=== PATIENT | male | born 1945 | race Caucasian/White ===

== ENCOUNTER → 2018-10-13 08:49 | Outpatient (POV) | payer MEDICARE, OTHER, SELFPAY | PROVIDERS: Visit Provider Specialist | DX: R25.1 Tremor, unspecified (principal); R29.898 Other symptoms and signs involving the musculoskeletal system; R20.0 Anesthesia of skin; M79.603 Pain in arm, unspecified; E11.8 Type 2 diabetes mellitus with unspecified complications; Z79.84 Long term (current) use of oral hypoglycemic drugs | CPT/HCPCS: 95886; 95908 ==

== ENCOUNTER → 2018-10-20 11:33 | Outpatient (CLI) | payer MEDICARE, OTHER, SELFPAY ==
[2018-10-20 12:04] LABS: Basophils # 0.1 K/mm3 (0-0.2); Basophils % 1.8 % (0.1-2.0); Eosinophils # 0.6 K/mm3 (0.0-0.4); Eosinophils % 8.2 % (0.1-12.0); Hematocrit 37.6 % (42.0-52.0); Lymphocytes % 44.3 % (10-50); Mean Corpuscular Hemoglobin 28.7 pg (27.0-31.2); Mean Corpuscular Volume 89.6 fl (80-94); Mean Platelet Volume 7.1 fl (7.4-10.4); Monocytes # 0.5 K/mm3 (0.1-1.0); Monocytes % 7.4 % (1.7-9.3); Neutrophils # 2.6 K/mm3 (1.8-7.8); Neutrophils % 38.3 % (37.0-80.0); Platelet Count 168 K/mm3 (142-424); Red Cell Distribution Width 13.9 % (11.5-17.5); White Blood Count 6.8 K/mm3 (4.8-10.8)
[2018-10-20 12:57] LABS: Hemoglobin A1C 6.4 % (0.0-7.0)
[2018-10-20 13:33] LABS: Alanine Aminotransferase 29 U/L (12-78); Albumin Level 3.4 gm/dL (3.4-5.0); Albumin/Globulin Ratio 1.1 (1.1-1.8); Alkaline Phosphatase 141 U/L (46-116); Anion Gap 9.6 mEq/L (5-15); Aspartate Amino Transferase 38 U/L (15-37); Bilirubin,Total 0.6 mg/dL (0.2-1.0); Blood Urea Nitrogen 11 mg/dL (7-18); Calcium 9.5 mg/dL (8.5-10.1); Carbon Dioxide 30 mmol/L (21.0-32.0); Chloride 104 mmol/L (98-107); Creatinine,Serum 0.73 mg/dL (0.70-1.30); Estimated Glomerular Filt Rate 106 ml/min (>60); GFR (African American) 128 ML/MIN (>60); Globulin 3.1 gm/dl (1.3-3.2); Glucose 89 mg/dL (74-106); Potassium 3.6 mmoL/L (3.5-5.1); Sodium 140 mmol/L (136-145); Thyroid Stimulating Hormone 1.78 uIU/ml (0.358-3.740); Total Protein,Serum 6.5 gm/dL (6.4-8.2)
[2018-10-21 12:58] LABS: Folate 10.5 ng/mL (>3.0)
[2018-10-21 13:00] LABS: Vitamin B12 579 pg/mL (232-1245)
== END ==
PROVIDERS: Visit Provider Specialist
DX: E11.8 Type 2 diabetes mellitus with unspecified complications (principal); R20.0 Anesthesia of skin; R25.1 Tremor, unspecified; R29.898 Other symptoms and signs involving the musculoskeletal system; Z79.84 Long term (current) use of oral hypoglycemic drugs; M79.601 Pain in right arm
CPT/HCPCS: 36415; 80053; 82607; 82746; 83036; 84443; 85025

== ENCOUNTER → 2021-04-03 10:56 | Outpatient (CLI) | payer MEDICARE, OTHER, SELFPAY ==
[2021-04-03 11:42] LABS: Basophils # 0.1 K/mm3 (0-0.2); Basophils % 1.1 % (0.1-2.0); Eosinophils # 0.6 K/mm3 (0.0-0.4); Hematocrit 40.9 % (42.0-52.0); Hemoglobin 13.5 g/dL (14.1-18.0); Hemoglobin A1C 5.8 % (4.0-6.0); Lymphocytes # 2.2 K/mm3 (0.7-4.5); Lymphocytes % 31.3 % (10-50); Mean Corpuscular HGB Conc 33.1 g/dL (31.8-35.4); Mean Corpuscular Hemoglobin 32.1 pg (27.0-31.2); Mean Corpuscular Volume 97.1 fl (80-94); Mean Platelet Volume 8.3 fl (7.4-10.4); Monocytes # 0.5 K/mm3 (0.1-1.0); Monocytes % 6.4 % (1.7-9.3); Neutrophils # 3.7 K/mm3 (1.8-7.8); Neutrophils % 53.3 % (37.0-80.0); Platelet Count 172 K/mm3 (142-424); Red Blood Count 4.22 M/mm3 (4.60-6.20); Red Cell Distribution Width 14.5 % (11.5-17.5)
[2021-04-03 12:22] LABS: Alanine Aminotransferase 19 U/L (12-78); Albumin Level 3.8 g/dl (3.5-5.0); Albumin/Globulin Ratio 1.4 (1.1-1.8); Alkaline Phosphatase 149 U/L (38-126); Aspartate Amino Transferase 44 U/L (17-59); Bilirubin,Total 0.8 mg/dl (0.2-1.3); Blood Urea Nitrogen 14 mg/dl (9-20); Calcium 9.8 mg/dl (8.4-10.2); Carbon Dioxide 28 mmol/L (22.0-30.0); Chloride 102 mmol/L (98-107); Estimated Glomerular Filt Rate 132 ml/min (>60); GFR (African American) 159 ML/MIN (>60); Globulin 2.8 g/dL (1.3-3.2); Glucose 99 mg/dl (74-100); Sodium 138 mmol/L (136-145); Total Protein,Serum 6.6 g/dl (6.3-8.2)
[2021-04-03 13:29] LABS: Vitamin B12 622 pg/mL (239-931)
== END ==
PROVIDERS: Visit Provider Nurse Practitioner Family
DX: R25.1 Tremor, unspecified (principal); R20.2 Paresthesia of skin; E11.9 Type 2 diabetes mellitus without complications; Z79.84 Long term (current) use of oral hypoglycemic drugs
CPT/HCPCS: 36415; 80053; 82607; 82746; 83036; 84443; 85025

== ENCOUNTER → 2021-05-01 13:57 | Outpatient (CLI) | payer MEDICARE, OTHER, SELFPAY | PROVIDERS: PCP Family Medicine; Visit Provider Nurse Practitioner Family | DX: G47.00 Insomnia, unspecified (principal); R40.0 Somnolence | CPT/HCPCS: 94762 ==

== ENCOUNTER → 2021-05-15 13:57 | Outpatient (CLI) | payer MEDICARE, OTHER, SELFPAY | PROVIDERS: PCP Family Medicine; Visit Provider Nurse Practitioner Family | DX: G47.34 Idiopathic sleep related nonobstructive alveolar hypoventilation (principal); G47.30 Sleep apnea, unspecified | CPT/HCPCS: G0399 ==

== ENCOUNTER → 2021-07-24 20:05 | Outpatient (CLI) | payer MEDICARE, OTHER, SELFPAY | PROVIDERS: PCP Family Medicine; Visit Provider Nurse Practitioner Family | DX: G47.33 Obstructive sleep apnea (adult) (pediatric) (principal) | CPT/HCPCS: 95810 ==

== ENCOUNTER 2022-07-06 10:27 | Inpatient (IN) | payer MEDICARE, OTHER, SELFPAY ==
[2022-07-06] VITALS (46 sets, daily range): BP systolic 67–204; BP diastolic 41–146; PULSE 74–104; RESP 15–33; TEMP 29.7–37.5; O2SAT 93–100; BMI 33.2
--- NOTE | 2022-07-06 10:34 | CT_ITS ---
FINAL REPORT TECHNIQUE: Thin section axial images were obtained from skull base to vertex without contrast. Coronal reconstruction images were obtained from the axial data. Exam was performed using dose reduction technique. CLINICAL HISTORY: AMS FINDINGS: There is no mass effect or midline shift. There is no hydrocephalus. There is no intracranial hemorrhage. The posterior fossa is without acute abnormality. The basilar cisterns are preserved. The soft tissues are without acute abnormality. No acute osseous abnormality is identified. IMPRESSION: No acute intracranial abnormality. Reviewed, Interpreted and Dictated by Shelley Low MD Transcribed by Elinor Edwards Authenticated and [facility]
--- NOTE | 2022-07-06 10:34 | PC.NURSE ---
Urine obtained by catheterization
--- NOTE | 2022-07-06 10:34 | HMH.EDGENADL ---
Discharge Plan Disposition Patient Disposition: Admitted As Inpatient Prescriptions Prescriptions: No Action aspirin [Adult Aspirin Regimen] 81 mg tablet,delayed release (DR/EC) 81 mg PO DAILY lisinopril-hydrochlorothiazide 20-12.5 mg tablet 1 tab PO DAILY Qty: 90 furosemide 40 mg tablet 40 mg PO DAILY Qty: 30 simvastatin 20 mg tablet 20 mg PO QHS metformin 500 mg tablet 500 mg PO BID cholecalciferol (vitamin D3) 1,000 unit capsule 1,000 unit PO BID sertraline 100 mg tablet 100 mg PO DAILY primidone 50 mg tablet 100 mg PO HS 90 Days Qty: 180 0RF Rx Instructions: take between 8-9pm, will cause drowsiness Clinical Impressions Clinical Impression: Hypothermia, Multi-organ system dysfunction, Rhabdomyolysis Instructions Patient Instructions: DI for Altered Mental Status Discharge ED Provider: Marlene Gamez General Adult HPI General Chief complaint: Altered Mental Status Stated complaint: fall, ams Time Seen by Provider: 07/06/22 10:34 History of Present Illness HPI narrative: 77-year-old male brought in by EMS after being found down outside in the cold rain. History is difficult to obtain secondary to patient's clinical status unknown amount of time the patient was outside. Patient was hypothermic in route by tactile touch but no objective temperature was taken. Patient is unable to provide further history and family is not available at the time of arrival. Related Data Home Medications Medication Instructions Recorded Confirmed cholecalciferol (vitamin D3) 25 1,000 unit PO BID Supplement 09/15/18 07/06/22 mcg (1,000 unit) capsule furosemide 40 mg tablet 40 mg PO DAILY Fluid #30 tabs 09/15/18 07/06/22 lisinopril 20 1 tab PO DAILY bp #90 tabs 09/15/18 07/06/22 mg-hydrochlorothiazide 12.5 mg tablet metformin 500 mg tablet 500 mg PO BID Diabetes 09/15/18 07/06/22 simvastatin 20 mg tablet 20 mg PO QHS Cholesterol 09/15/18 07/06/22 aspirin 81 mg tablet,delayed 81 mg PO DAILY heart health 04/03/21 07/06/22 release (Adult Aspirin Regimen) sertraline 100 mg tablet 100 mg PO DAILY mood 04/03/21 07/06/22 Previous Rx's Medication Instructions Recorded primidone 50 mg tablet 100 mg PO HS tremor 90 days #180 04/12/22 tabs Allergies Allergy/AdvReac Type Severity Reaction Status Date / Time Penicillins Allergy Verified 07/06/22 10:48 TAPE Allergy Unknown BLISTERS Uncoded 12/12/21 13:07 SKIN, CLEAR PLASTIC TAPE PFSH [facility] Disclaimer: The information contained in this section may have been updated after the patient was seen, as this information can be updated by other users. Social History Smoking Status: Unknown if ever smoked alcohol intake: never substance use type: denies use current occupational status: retired Travel in the last 8 weeks: None household members: significant other housing: house ROS Obtained: Yes All systems reviewed & no additional complaints except as documented Physical Exam General General appearance: lethargic and other (Appears ill and very cold to the touch skin is wet clothing is wet) Head Head exam: atraumatic and normocephalic Eye Eye exam: Present normal appearance, PERRL and EOMI ENT ENT exam: Present normal exam Neck Neck exam: Absent tenderness Chest Chest inspection: Present normal inspection and symmetric chest wall rise Respiratory Respiratory exam: Present normal lung sounds bilaterally; Absent respiratory distress, wheezes or stridor Cardiovascular Cardiovascular exam: Present regular rate, normal rhythm, bradycardia and tachycardia Abdominal Exam Abdominal exam: Present soft; Absent distention, tenderness or guarding Neurological Exam Neurological exam: Present alert and oriented X3 Skin Skin exam: Present other (Ecchymotic and erythematous skin breakdown changes throughout bilateral upper extremities and locations of pressure including bi
--- NOTE | 2022-07-06 10:35 | XR_ITS ---
FINAL REPORT CLINICAL HISTORY: dyspnea FINDINGS: A single PA view of the chest was obtained. There is no prior exam for comparison. The heart is borderline in size. The mediastinal silhouette is normal. There are low lung volumes with bibasilar opacities which could be atelectasis or pneumonia, effusions are not excluded. There is no pneumothorax. No acute osseous abnormality is identified. IMPRESSION: Bibasilar opacities, could be atelectasis or pneumonia, effusions are not excluded. Reviewed, Interpreted and Dictated by Shelley Low MD Transcribed by Elinor Edwards Authenticated and [facility]
--- NOTE | 2022-07-06 10:40 | PC.NURSE ---
PT TO CT
[2022-07-06 10:43] LABS: VBG Base Excess -7.1 mmol/L (-2.4-2.3); VBG HCO3 21.5 mmol/L (23-30); VBG PCO2 60.3 mmol/L (35-51); VBG PO2 40.3 mmol/L (28-40); VBG Total CO2 23.3 mmol/L (23-27)
[2022-07-06 10:45] LABS: VBG PH 7.17 mmol/L (7.31-7.41)
--- NOTE | 2022-07-06 10:45 | PC.NURSE ---
CARINA SOTELO notified of critical vbg results
--- NOTE | 2022-07-06 10:46 | PC.NURSE ---
pt to CT via stretcher with nursing staff monitoring pt
[2022-07-06 10:54] LABS: Chloride 104 mmol/L (98-107); Sodium 146 mmol/L (136-145)
--- NOTE | 2022-07-06 10:54 | PC.NURSE ---
pt return from CT
--- NOTE | 2022-07-06 10:54 | PC.NURSE ---
PT RETURNED FROM CT
[2022-07-06 10:55] LABS: Basophils # 0.1 K/mm3 (0-0.2); Basophils % 0.5 % (0.1-2.0); Eosinophils # 0.1 K/mm3 (0.0-0.4); Eosinophils % 0.2 % (0.1-12.0); Hemoglobin 14.6 g/dL (14.1-18.0); Lymphocytes # 2.2 K/mm3 (0.7-4.5); Lymphocytes % 8.6 % (10-50); Mean Corpuscular Hemoglobin 30.9 pg (27.0-31.2); Mean Corpuscular Volume 99.5 fl (80-94); Mean Platelet Volume 8.2 fl (7.4-10.4); Monocytes # 2.3 K/mm3 (0.1-1.0); Monocytes % 9.1 % (1.7-9.3); Neutrophils # 21.1 K/mm3 (1.8-7.8); Neutrophils % 81.6 % (37.0-80.0); Platelet Count 237 K/mm3 (142-424); Potassium 4.9 mmoL/L (3.5-5.1); Red Blood Count 4.72 M/mm3 (4.60-6.20); Red Cell Distribution Width 14.2 % (11.5-17.5); White Blood Count 25.8 K/mm3 (4.8-10.8)
[2022-07-06 10:57] LABS: Alanine Aminotransferase 49 U/L (12-78); Albumin Level 4.3 g/dl (3.5-5.0); Albumin/Globulin Ratio 1.3 (1.1-1.8); Alkaline Phosphatase 150 U/L (38-126); Anion Gap 22.9 mEq/L (5-15); Aspartate Amino Transferase 168 U/L (17-59); Blood Urea Nitrogen 29 mg/dl (9-20); Carbon Dioxide 24 mmol/L (22.0-30.0); Creatinine Clearance Estimated 77 mL/min (50-200); Estimated Glomerular Filt Rate 59 ml/min (>60); GFR (African American) 71 ML/MIN (>60); Globulin 3.2 g/dL (1.3-3.2); MANUAL DIFFERENTIAL MANUAL DIFFERENTIAL (MANUAL DIFF); Phosphorous 8.5 mg/dl (2.5-4.5); Total Protein,Serum 7.5 g/dl (6.3-8.2)
[2022-07-06 10:58] LABS: Calcium 9.2 mg/dl (8.4-10.2); Glucose 82 mg/dl (74-100); Magnesium 3.1 mg/dl (1.6-2.3)
[2022-07-06 11:03] LABS: Lactic Acid 7.6 mmol/L (0.7-2.1)
--- NOTE | 2022-07-06 11:03 | PC.NURSE ---
Alexandrea Gaviria RN took critical Lactic level from Maile in lab. Level repeated back, verified and reported to ED doctor
[2022-07-06 11:10] LABS: Troponin I 0.19 ng/ml (0.00-0.034)
--- NOTE | 2022-07-06 11:15 | PC.NURSE ---
FAMILY AT BEDSIDE, UPDATED. NO NEEDS AT THIS TIME
[2022-07-06 11:18] LABS: Creatine Kinase 7515 U/L (55-170)
[2022-07-06 11:21] LABS: Lymphocytes % 17 % (10-50); Monocytes % 5 % (2-9); Neutrophils % 78 % (42-76); Platelet Estimate Normal; RBC Morphology Normal; Total Cells Counted 100
[2022-07-06 11:28] LABS: Thyroid Stimulating Hormone 3.54 uIU/mL (0.465-4.68)
--- NOTE | 2022-07-06 11:29 | PC.NURSE ---
[facility] IS [facility], [facility], WANTS PT ADMITTED AT [facility], DR. MCNEIL NOTIFIED
--- NOTE | 2022-07-06 11:31 | PC.NURSE ---
DR MCNEIL SPEAKING WITH HOSPITALIST FOR ADMISSION
[2022-07-06 11:33] LABS: Activated Partial Thrombo Time 25.2 seconds (22.8-30.6); INR 1.18 (0.9-1.1); Prothrombin Time 12.6 seconds (10.1-12.5)
--- NOTE | 2022-07-06 11:33 | PC.NURSE ---
DR MCNEIL AT BEDSIDE TO UPDATE FAMILY
--- NOTE | 2022-07-06 11:39 | EXP.PHA.CONS ---
Pharmacy Consult Date: 07/06/22 Time: 11:39 Referring provider: DR. MCNEIL Reason for Consult:: VANCOMYCIN DOSING Allergies Allergy/AdvReac Type Severity Reaction Status Date / Time Penicillins Allergy Verified 07/06/22 10:48 TAPE Allergy Unknown BLISTERS Uncoded 12/12/21 13:07 SKIN, CLEAR PLASTIC TAPE Home Medications Medication Instructions Recorded Confirmed Type cholecalciferol (vitamin D3) 25 1,000 unit PO BID Supplement 09/15/18 07/06/22 History mcg (1,000 unit) capsule furosemide 40 mg tablet 40 mg PO DAILY Fluid #30 tabs 09/15/18 07/06/22 History lisinopril 20 1 tab PO DAILY bp #90 tabs 09/15/18 07/06/22 History mg-hydrochlorothiazide 12.5 mg tablet metformin 500 mg tablet 500 mg PO BID Diabetes 09/15/18 07/06/22 History simvastatin 20 mg tablet 20 mg PO QHS Cholesterol 09/15/18 07/06/22 History aspirin 81 mg tablet,delayed 81 mg PO DAILY heart health 04/03/21 07/06/22 History release (Adult Aspirin Regimen) sertraline 100 mg tablet 100 mg PO DAILY mood 04/03/21 07/06/22 History primidone 50 mg tablet 100 mg PO HS tremor 90 days #180 04/12/22 07/06/22 Rx tabs New Prescriptions to Start Prescriptions: Height: 1.75 m Weight: 102.058 kg Laboratory Results:: Laboratory Results - last 24 hr 07/06/22 10:30: Total Creatine Kinase 7515 H*, Troponin I 0.19 H, TSH 3.54 07/06/22 10:30: WBC 25.8 H*, RBC 4.72, Hgb 14.6, Hct 47.0, MCV 99.5 H, MCH 30.9, MCHC 31.0 L, RDW 14.2, Plt Count 237, MPV 8.2, Neut % (Auto) 81.6 H, Lymph % (Auto) 8.6 L, [place] % (Auto) 9.1, Eos % (Auto) 0.2, Baso % (Auto) 0.5, Neut # (Auto) 21.1 H, Lymph # (Auto) 2.2, [place] # (Auto) 2.3 H, Eos # (Auto) 0.1, Baso # (Auto) 0.1, Total Counted 100, Neutrophils % (Manual) 78 H, Lymphocytes % (Manual) 17, Monocytes % (Manual) 5, Platelet Estimate Normal, RBC Morphology Normal 07/06/22 10:30: PT 12.6 H, INR 1.18 H, APTT 25.2 07/06/22 10:30: Sodium 146 H, Potassium 4.9, Chloride 104, Carbon Dioxide 24, Anion Gap 22.9 H, BUN 29 H, Creatinine 1.20, Estimated Creat Clear 77, Estimated GFR 59, Est GFR ( Amer) 71, Glucose 82, Calcium 9.2, Phosphorus 8.5 H, Magnesium 3.1 H, Total Bilirubin 2.0 H, AST 168 H, ALT 49, Alkaline Phosphatase 150 H, Total Protein 7.5, Albumin 4.3, Globulin 3.2, Albumin/Globulin Ratio 1.3 07/06/22 10:30: Lactate 7.6 H 07/06/22 10:34: VBG pH 7.17 L, VBG pCO2 60.3 H, VBG pO2 40.3 H, VBG HCO3 21.5 L, VBG Total CO2 23.3, VBG O2 Saturation 61.0, VBG Base Excess -7.1 L Assessment and Plan Assessment and plan all Dx Assessment and Plan for all problems:: Pharmacokinetic dosing service Objective: Patient: Floor: Age: 77 yo Serum creatinine: 1.2 mg/dL Height: 69.0 Inches Weight (kg): 102 = Assessment: IBW (kg): 70.70 Dosing wt(kg): 102 Estimated Creatinine clearance (ml/min): 53.2 CRCL method: Cockcroft and Gault using ibw(default). Drug selected: Vancomycin Loading dose (mg): 0 Vd (liters): 81.6 (factor used: 0.8 L/kg) Maurizio (hr-1): 0.049 Half life (hrs): 14.15 Recommended dose: 1750 mg Interval: 18 hrs Infusion time (hrs): 2.0 Predicted peak (mcg/mL): 34.9 Predicted trough (mcg/mL): 15.93 Total body weight is being used for vancomycin dosing. Recommendations: Give Vancomycin 1750 mg q 18 hrs with an expected Cpeak of 34.9 mcg/ml and an expected Ctrough of 15.93 mcg/ml. ----Vanco only - ignore for aminoglycosides----- CLvanco= 4.00 L/hr AUC 0-24 /SUSAN Data: SUSAN 0.5 mcg/mL: AUC/SUSAN: 1166.7 SUSAN 1.0 mcg/mL: AUC/SUSAN: 583.3 --------- SUSAN 1.5 mcg/mL: AUC/SUSAN: 388.9 SUSAN 2.0 mcg/mL: AUC/SUSAN: 291.7
--- NOTE | 2022-07-06 11:40 | PC.NURSE ---
[facility] refusal form faxed at this time.
--- NOTE | 2022-07-06 11:42 | PC.NURSE ---
notified care management of admission, ER MD states pt needs to be ICU level
--- NOTE | 2022-07-06 11:48 | PC.NURSE ---
spoke with ryan in pharmacy states will send antibiotics down to ER as ordered for pt.
--- NOTE | 2022-07-06 11:53 | PC.NURSE ---
per greenhouse transplanter they are having to move pts around, pt is getting assigned to room [id number]. The room will need to be cleaned and second floor charge will notify us when room is ready
--- NOTE | 2022-07-06 11:54 | PC.NURSE ---
Addendum entered by Kyleigh uDggan RN 07/06/22 11:55: PT ON THIRD LITER OF SEPSIS BOLUS Original Note: NOTIFIED OF HYPOTENSION /45
--- NOTE | 2022-07-06 12:12 | PC.NURSE ---
PT CONTINUES TO BE HYPOTENSIVE, 75/42. ORDERS FOR LEVOPHED AT THIS TIME
--- NOTE | 2022-07-06 12:17 | HMH.PHAINT1 ---
Pharmacy Intervention Comments: MEDICATION RECONCILIATION COMPLETED ON PATIENT USING EXTERNAL FILL HISTORY FROM PHARMACY AND LIST FROM NEUROLOGY OFFICE FROM VISIT LAST MONTH. -OLE SULLIVAND
[2022-07-06 12:23] LABS: Coronavirus 19, PCR Not Detected (NotDetected); Influenza A, PCR Not Detected (NotDetected); Influenza B, PCR Not Detected (NotDetected)
--- NOTE | 2022-07-06 12:35 | PC.NURSE ---
charge nurse on second floor states pt assigned room is cleaned dr. murray in ER to place central line in placement
--- NOTE | 2022-07-06 12:36 | PC.NURSE ---
LEVOPHED AT 30MCG AT THIS TIME
--- NOTE | 2022-07-06 12:37 | PC.NURSE ---
CARDIOLOGY AT BEDSIDE
[2022-07-06 12:41] LABS: Microscopic, Urine URINE MICROSCOPIC (MICROSCOPIC)
[2022-07-06 12:42] LABS: Appearance,Urine CLEAR (Clear); Bilirubin,Urine Negative (Negative); Blood, Urine 3+ (Negative); Color,Urine YELLOW (Yellow); Glucose,Urine (UA) Negative (Negative); Ketones,Urine TRACE (Negative); Leukocyte Esterase,Urine Negative (Negative); Nitrate,Urine Negative (Negative); PH,Urine 5.5 (5.0-8.5); Protein,Urine TRACE (Negative); Specific Gravity, Urine >= 1.030 (1.005-1.030)
--- NOTE | 2022-07-06 12:45 | PC.NURSE ---
LEVOPHED TO 17MCG AT THIS TIME
--- NOTE | 2022-07-06 12:47 | PC.NURSE ---
per Dr. Saul Siegel admit to ICU order placed per verbal order.
[2022-07-06 12:57] LABS: Bacteria,Urine 1+ /lpf; WBC,Urine Occasional #/hpf (0-3)
--- NOTE | 2022-07-06 12:57 | PC.NURSE ---
REPORT GIVEN TO Georgette SKAGGS RN AT THIS TIME
[2022-07-06 12:58] LABS: Calcium Oxalate Crystals,Urine Trace /lpf; Hyaline Casts,Urine Occasional #/lpf (0)
--- NOTE | 2022-07-06 13:05 | PC.NURSE ---
notified dr. escalera of need for tissue reperfusion assessment
--- NOTE | 2022-07-06 13:33 | PC.NURSE ---
arrived to floor by stretcher from ED
[2022-07-06 14:47] LABS: Reflex Lactic Add Lactic Reflex
[2022-07-06 14:55] LABS: Troponin I 0.22 ng/ml (0.00-0.034)
--- NOTE | 2022-07-06 15:28 | EXP.HP ---
History of Present Illness *Admission Date: 07/06/22 *Reason for visit:: Hypothermia *History of present illness: 77-year-old male brought in by EMS after being found down outside in the cold rain.? History is difficult to obtain secondary to patient's clinical status unknown amount of time the patient was outside.? Patient was hypothermic in route by tactile touch but no objective temperature was taken.? Patient is unable to provide further history and family is not available at the time of arrival. In the emergency room patient was hypotensive, started on warmed lactated Ringer's. Remained hypotensive and required Levophed for pressor support. Bedside echo showed globally hypokinetic left ventricle ejection fraction approximately 40%. Patient was admitted to medicine and had improvement of his blood pressure. No history at this time. [facility] Disclaimer: The information contained in this section may have been updated after the patient was seen, as this information can be updated by other users. Social History Smoking Status: Unknown if ever smoked alcohol intake: never substance use type: denies use current occupational status: retired Travel in the last 8 weeks: None household members: significant other housing: house Review of Systems Review of Systems Review of systems:: unable to obtain Meds Home Medications and Allergies Home Medications Medication Instructions Recorded Confirmed Type cholecalciferol (vitamin D3) 25 1,000 unit PO BID Supplement 09/15/18 07/06/22 History mcg (1,000 unit) capsule furosemide 40 mg tablet 40 mg PO DAILY Fluid #30 tabs 09/15/18 07/06/22 History lisinopril 20 1 tab PO DAILY Hypertension #90 09/15/18 07/06/22 History mg-hydrochlorothiazide 12.5 mg tabs tablet metformin 500 mg tablet 500 mg PO BID Diabetes 09/15/18 07/06/22 History simvastatin 20 mg tablet 20 mg PO HS Cholesterol 09/15/18 07/06/22 History aspirin 81 mg tablet,delayed 81 mg PO DAILY heart health 04/03/21 07/06/22 History release (Adult Aspirin Regimen) sertraline 100 mg tablet 100 mg PO DAILY mood 04/03/21 07/06/22 History primidone 50 mg tablet 100 mg PO HS tremor 90 days #180 04/12/22 07/06/22 Rx tabs New Prescriptions to Start Prescriptions: Allergies Allergy/AdvReac Type Severity Reaction Status Date / Time Penicillins Allergy Verified 07/06/22 10:48 TAPE Allergy Unknown BLISTERS Uncoded 12/12/21 13:07 SKIN, CLEAR PLASTIC TAPE Exam Data for Last 24 hours Vital signs and Labs for Last 24 Hours: Temp Pulse Resp BP Pulse Ox 95.9 F L 82 17 110/67 98 07/06/22 14:00 07/06/22 14:00 07/06/22 14:00 07/06/22 14:00 07/06/22 14:00 Laboratory Results - last 24 hr 07/06/22 10:30: Total Creatine Kinase 7515 H*, Troponin I 0.19 H, TSH 3.54 07/06/22 10:30: WBC 25.8 H*, RBC 4.72, Hgb 14.6, Hct 47.0, MCV 99.5 H, MCH 30.9, MCHC 31.0 L, RDW 14.2, Plt Count 237, MPV 8.2, Neut % (Auto) 81.6 H, Lymph % (Auto) 8.6 L, [place] % (Auto) 9.1, Eos % (Auto) 0.2, Baso % (Auto) 0.5, Neut # (Auto) 21.1 H, Lymph # (Auto) 2.2, [place] # (Auto) 2.3 H, Eos # (Auto) 0.1, Baso # (Auto) 0.1, Total Counted 100, Neutrophils % (Manual) 78 H, Lymphocytes % (Manual) 17, Monocytes % (Manual) 5, Platelet Estimate Normal, RBC Morphology Normal 07/06/22 10:30: PT 12.6 H, INR 1.18 H, APTT 25.2 07/06/22 10:30: Sodium 146 H, Potassium 4.9, Chloride 104, Carbon Dioxide 24, Anion Gap 22.9 H, BUN 29 H, Creatinine 1.20, Estimated Creat Clear 77, Estimated GFR 59, Est GFR ( Amer) 71, Glucose 82, Calcium 9.2, Phosphorus 8.5 H, Magnesium 3.1 H, Total Bilirubin 2.0 H, AST 168 H, ALT 49, Alkaline Phosphatase 150 H, Total Protein 7.5, Albumin 4.3, Globulin 3.2, Albumin/Globulin Ratio 1.3 07/06/22 10:30: Lactate 7.6 H 07/06/22 10:34: VBG pH 7.17 L, VBG pCO2 60.3 H, VBG pO2 40.3 H, VBG HCO3 21.5 L, VBG Total CO2 23.3, VBG O2 Saturation 61.0, VBG Base Excess -7.1 L 07/06/22 11:05: Urine Color Yel
[2022-07-06 15:33] LABS: Lactic Acid Follow Up (RFLX 1) 3.6 mmol/L (0.7-2.1)
[2022-07-06 16:58] LABS: Reflex Lactic (2 hrs) Add Lactic Reflex
[2022-07-06 17:15] LABS: Lactic Acid Follow up (RFLX 2) 2.3 mmol/L (0.7-2.1)
[2022-07-06 17:31] LABS: Troponin I 0.25 ng/ml (0.00-0.034)
--- NOTE | 2022-07-06 19:30 | PC.WOUNDNOTE ---
LUE (L) knee (L) side of chest
--- NOTE | 2022-07-06 19:31 | PC.WOUNDNOTE ---
(R) arm. Skin tear on RUE (R) Hand. Skin tear (R) knee
--- NOTE | 2022-07-06 19:41 | PC.NURSE ---
Pt is resting in bed. Off thermo blanket. Last temp was 99.2. Pt is alert to self. Levophed is currently infusing @ 8 mcg/min. LR @ 150 ml/hr. F/C draining to bedside with dark lillian urine. Urine output has been good.
--- NOTE | 2022-07-06 20:34 | PC.NURSE ---
pt's bp 111/60, decreased levophed to 4mcg
[2022-07-06 21:41] LABS: POC Glucose,Bedside 104 (70-110)
--- NOTE | 2022-07-06 22:08 | PC.NURSE ---
bp 106/56, decreased levophed drip to 2mcg
--- NOTE | 2022-07-06 22:18 | PC.NURSE ---
bp 119/63, held levophed drip at this time
[2022-07-07] VITALS (13 sets, daily range): BP systolic 95–117; BP diastolic 54–65; PULSE 64–82; RESP 15–23; TEMP 36.6–37.2; O2SAT 94–99; BMI 33.3
[2022-07-07 06:08] LABS: POC Glucose,Bedside 95 (70-110)
[2022-07-07 07:34] LABS: Chloride 108 mmol/L (98-107); Sodium 141 mmol/L (136-145)
[2022-07-07 07:35] LABS: Potassium 3.9 mmoL/L (3.5-5.1)
[2022-07-07 07:37] LABS: Alanine Aminotransferase 38 U/L (12-78); Albumin Level 2.8 g/dl (3.5-5.0); Albumin/Globulin Ratio 1.2 (1.1-1.8); Alkaline Phosphatase 83 U/L (38-126); Anion Gap 9.9 mEq/L (5-15); Aspartate Amino Transferase 283 U/L (17-59); Blood Urea Nitrogen 38 mg/dl (9-20); Carbon Dioxide 27 mmol/L (22.0-30.0); Creatinine Clearance Estimated 92 mL/min (50-200); Estimated Glomerular Filt Rate 82 ml/min (>60); GFR (African American) 100 ML/MIN (>60); Globulin 2.4 g/dL (1.3-3.2); Phosphorous 3.5 mg/dl (2.5-4.5); Total Protein,Serum 5.2 g/dl (6.3-8.2)
[2022-07-07 07:38] LABS: Calcium 8.2 mg/dl (8.4-10.2); Glucose 89 mg/dl (74-100); Magnesium 2.4 mg/dl (1.6-2.3)
[2022-07-07 07:45] LABS: Basophils % 0.3 % (0.1-2.0); Eosinophils % 0.3 % (0.1-12.0); Hematocrit 36.2 % (42.0-52.0); Lymphocytes # 1.9 K/mm3 (0.7-4.5); Mean Corpuscular HGB Conc 33.4 g/dL (31.8-35.4); Mean Platelet Volume 9.9 fl (7.4-10.4); Monocytes # 1.3 K/mm3 (0.1-1.0); Monocytes % 7.9 % (1.7-9.3); Neutrophils # 12.8 K/mm3 (1.8-7.8); Neutrophils % 79.6 % (37.0-80.0); Platelet Count 130 K/mm3 (142-424); Red Blood Count 3.77 M/mm3 (4.60-6.20); Red Cell Distribution Width 14.6 % (11.5-17.5); White Blood Count 16.1 K/mm3 (4.8-10.8)
[2022-07-07 07:57] LABS: MANUAL DIFFERENTIAL MANUAL DIFFERENTIAL (MANUAL DIFF)
[2022-07-07 08:49] LABS: Lymphocytes % 11 % (10-50); Monocytes % 4 % (2-9); Neutrophils % 85 % (42-76); Platelet Estimate Normal; Total Cells Counted 100
[2022-07-07 08:50] LABS: RBC Morphology Normal
[2022-07-07 08:57] LABS: Hemoglobin 12.1 g/dL (14.1-18.0)
--- NOTE | 2022-07-07 09:03 | EXP.ACUTE.PN ---
Subjective *Date: 07/07/22 *Time: 14:32 Interval history: afebrile. no acute events overnight. Patient more alert and interactive this morning. Tolerating antibiotics. Would like to try some breakfast. Asked nurse to perform bedside swallow eval. Patient able to cough, stick out tongue, protect airway. Labs showing improvement this morning. Normothermic. Normotensive off pressors Medical Exam Vital signs and Labs for Last 24 Hours: Vital Signs Temp Pulse Pulse Resp BP BP BP 07/07/22 08:00 98.2 F 07/07/22 00:00 82 07/06/22 20:00 84 07/07/22 04:00 70 07/07/22 06:00 70 15 117/58 L 07/07/22 04:00 98.9 F 72 16 95/55 L 07/07/22 02:00 72 21 95/56 L 07/07/22 00:00 81 23 110/65 07/06/22 22:00 84 26 H 106/56 L 07/06/22 20:00 99.5 F 89 22 109/60 L 07/06/22 19:00 89 20 107/56 L 07/06/22 18:00 92 H 21 106/54 L 07/06/22 18:00 99.2 F 92 H 21 106/54 L 07/06/22 17:00 98 H 21 108/51 L 07/06/22 16:00 100 H 21 129/57 L 07/06/22 15:00 97.6 F 104 H 23 124/64 07/06/22 13:55 96 H 23 109/73 L 07/06/22 16:00 97.8 F 07/06/22 14:00 95.9 F L 82 17 110/67 07/06/22 13:15 95.7 F L 92 H 15 116/67 07/06/22 13:12 95.7 F L 95 H 17 121/73 07/06/22 13:10 95.5 F L 84 24 114/71 07/06/22 13:07 95.5 F L 84 21 117/67 07/06/22 13:05 95.4 F L 89 21 113/69 07/06/22 13:02 95.4 F L 89 17 117/63 07/06/22 13:00 95.4 F L 91 H 23 117/67 07/06/22 13:30 95.7 F L 92 H 15 116/67 07/06/22 12:57 95.2 F L 90 21 117/70 07/06/22 12:55 95.2 F L 90 24 123/71 07/06/22 12:52 95 F L 22 127/71 07/06/22 12:50 94.8 F L 91 H 19 118/70 07/06/22 12:47 94.8 F L 91 H 20 125/75 07/06/22 12:45 94.6 F L 92 H 19 131/76 07/06/22 12:42 94.6 F L 92 H 27 H 131/73 07/06/22 12:40 94.5 F L 92 H 19 127/73 07/06/22 12:37 94.5 F L 92 H 25 H 122/68 07/06/22 12:35 94.5 F L 94 H 22 106/65 L 07/06/22 12:33 94.3 F L 84 19 92/60 L 07/06/22 12:30 94.1 F L 88 20 81/46 L 07/06/22 12:27 93.9 F L 80 18 71/42 L 07/06/22 12:25 93.9 F L 81 22 78/41 L 07/06/22 12:20 93.7 F L 87 18 67/44 L 07/06/22 12:00 92.8 F L 74 20 78/44 L 07/06/22 11:55 92.5 F L 86 20 86/46 L 07/06/22 11:50 92.3 F L 87 21 75/48 L 07/06/22 11:43 91.9 F L 87 19 69/44 L 07/06/22 11:40 91.8 F L 84 19 76/41 L 07/06/22 11:32 91.4 F L 86 19 93/45 L 07/06/22 11:30 91.2 F L 85 21 84/41 L 07/06/22 11:20 90.7 F L 79 22 90/42 L 07/06/22 11:10 90 F L 88 25 H 97/46 L 07/06/22 11:01 85.5 F L 89 33 H 111/48 L 07/06/22 10:40 89 29 H 113/54 L 07/06/22 12:10 93.2 F L 88 18 75/42 L 07/06/22 10:36 92 H 29 H 204/146 H 07/06/22 10:29 88.6 F L 90 30 H 119/62 Pulse Ox 07/07/22 08:00 07/07/22 00:00 07/06/22 20:00 07/07/22 04:00 07/07/22 06:00 98 07/07/22 04:00 97 07/07/22 02:00 97 07/07/22 00:00 97 07/06/22 22:00 96 07/06/22 20:00 96 07/06/22 19:00 96 07/06/22 18:00 96 07/06/22 18:00 96 07/06/22 17:00 95 07/06/22 16:00 93 L 07/06/22 15:00 95 07/06/22 13:55 07/06/22 16:00 07/06/22 14:00 98 07/06/22 13:15 97 07/06/22 13:12 97 07/06/22 13:10 96 07/06/22 13:07 96 07/06/22 13:05 100 07/06/22 13:02 100 07/06/22 13:00 100 07/06/22 13:30 07/06/22 12:57 100 07/06/22 12:55 100 07/06/22 12:52 100 07/06/22 12:50 100 07/06/22 12:47 100 07/06/22 12:45 98 07/06/22 12:42 100 07/06/22 12:40 98 07/06/22 12:37 98 07/06/22 12:35 100 07/06/22 12:33 100 07/06/22 12:30 95 07/06/22 12:27 96 07/06/22 12:25 96 07/06/22 12:20 96 07/06/22 12:00 95 07/06/22 11:55 95 07/06/22 11:50 96 07/06/22 11:43 95 07/06/22 11:40 95 07/06/22 11:32 95 07/06
--- NOTE | 2022-07-07 10:20 | PC.NURSE ---
Bedside swallow eval completed per md request at 0850. pt tolerated thin liquids with straws, no coughing or signs of aspiration noted. pt tolerated applesauce with no s/s of aspiration. md notified at 0900 that pt passed bedside swallow eval.
--- NOTE | 2022-07-07 10:20 | PC.NURSE ---
courtesy tech note; Rounded on pt, pt sleeping at this time. call light within reach. No further requests at this time. Samir Bustos, SRNA
[2022-07-07 11:10] LABS: POC Glucose,Bedside 86 (70-110)
[2022-07-07 11:49] LABS: Creatine Kinase 14363 U/L (55-170)
--- NOTE | 2022-07-07 16:52 | PC.NURSE ---
multiple shifts cleared
[2022-07-07 16:55] LABS: POC Glucose,Bedside 84 (70-110)
--- NOTE | 2022-07-07 18:23 | PC.NURSE ---
pt has been sitting up in the bed off and on this shift with minimal naps noted. lungs are clear with faint crackles in left base. pt has been afebrile this shift. pt is alert to self and place, pt attempts to feed himself meals but does require some assistance. pt daughter brought in home cpap and dentures this afternoon, md notified. bowel sounds are active in all quads, no bm noted this shift. md aware of urine that is dark in color.
[2022-07-07 20:21] LABS: Chloride 108 mmol/L (98-107); Potassium 3.9 mmoL/L (3.5-5.1); Sodium 137 mmol/L (136-145)
[2022-07-07 20:24] LABS: Anion Gap 8.9 mEq/L (5-15); Blood Urea Nitrogen 31 mg/dl (9-20); Carbon Dioxide 24 mmol/L (22.0-30.0); Creatinine Clearance Estimated 92 mL/min (50-200); Estimated Glomerular Filt Rate 110 ml/min (>60); GFR (African American) 133 ML/MIN (>60); Glucose 131 mg/dl (74-100)
[2022-07-07 21:25] LABS: POC Glucose,Bedside 162 (70-110)
[2022-07-08] VITALS (12 sets, daily range): BP systolic 123–150; BP diastolic 71–94; PULSE 60–70; RESP 15–24; TEMP 36.3–37.1; O2SAT 94–100; BMI 33.0
--- NOTE | 2022-07-08 06:37 | PC.NURSE ---
Pt noted to have a rhythm change on telemetry to [place] at 0126, Pt stoney. Lashaun Murry made aware. No new orders at that time. Pt has not voiced any c/o to staff t/o shift. Using call light as directed for needs.
[2022-07-08 06:45] LABS: POC Glucose,Bedside 89 (70-110)
[2022-07-08 07:41] LABS: Basophils % 0.5 % (0.1-2.0); Eosinophils # 0.2 K/mm3 (0.0-0.4); Eosinophils % 3.8 % (0.1-12.0); Hematocrit 44.1 % (42.0-52.0); Lymphocytes # 1.2 K/mm3 (0.7-4.5); Lymphocytes % 21.2 % (10-50); Mean Corpuscular HGB Conc 31.7 g/dL (31.8-35.4); Mean Corpuscular Hemoglobin 30.6 pg (27.0-31.2); Mean Corpuscular Volume 96.5 fl (80-94); Mean Platelet Volume 8.5 fl (7.4-10.4); Monocytes # 0.5 K/mm3 (0.1-1.0); Monocytes % 9.1 % (1.7-9.3); Neutrophils # 3.7 K/mm3 (1.8-7.8); Neutrophils % 65.3 % (37.0-80.0); Platelet Count 80 K/mm3 (142-424); Red Blood Count 4.56 M/mm3 (4.60-6.20); Red Cell Distribution Width 14.6 % (11.5-17.5); White Blood Count 5.6 K/mm3 (4.8-10.8)
[2022-07-08 09:04] LABS: Chloride 110 mmol/L (98-107); Sodium 139 mmol/L (136-145)
[2022-07-08 09:06] LABS: Alanine Aminotransferase 51 U/L (12-78); Alkaline Phosphatase 81 U/L (38-126); Aspartate Amino Transferase 338 U/L (17-59); Bilirubin,Total 0.9 mg/dl (0.2-1.3); Blood Urea Nitrogen 26 mg/dl (9-20); Carbon Dioxide 27 mmol/L (22.0-30.0); Creatinine Clearance Estimated 91 mL/min (50-200); Estimated Glomerular Filt Rate 162 ml/min (>60); GFR (African American) 196 ML/MIN (>60); Phosphorous 2.1 mg/dl (2.5-4.5)
[2022-07-08 09:07] LABS: Albumin Level 2.5 g/dl (3.5-5.0); Albumin/Globulin Ratio 1.1 (1.1-1.8); Calcium 8.2 mg/dl (8.4-10.2); Globulin 2.2 g/dL (1.3-3.2); Glucose 81 mg/dl (74-100); Total Protein,Serum 4.7 g/dl (6.3-8.2)
[2022-07-08 10:13] LABS: Creatine Kinase 8279 U/L (55-170)
[2022-07-08 10:18] LABS: Anion Gap 6.5 mEq/L (5-15); Potassium 4.5 mmoL/L (3.5-5.1)
[2022-07-08 10:21] LABS: Magnesium 2.3 mg/dl (1.6-2.3)
[2022-07-08 10:47] LABS: INR 1.17 (0.9-1.1); Prothrombin Time 12.5 seconds (10.1-12.5)
--- NOTE | 2022-07-08 10:49 | EXP.ACUTE.PN ---
Subjective *Date: 07/08/22 *Time: 10:49 Interval history: Patient is more interactive today. States he is feeling better. Denies any pain or shortness of breath. No muscle aches. No fevers overnight. Remained hemodynamically stable. Having significant urine output, urine is more yellow today compared to yesterday where it is more tea colored or brown. Medical Exam Vital signs and Labs for Last 24 Hours: Vital Signs Temp Pulse Pulse Resp BP Pulse Ox 07/08/22 08:06 70 07/08/22 07:41 97.7 F 64 23 127/78 100 07/08/22 04:00 60 07/08/22 04:00 97.6 F 60 16 135/78 95 07/08/22 01:11 60 07/08/22 00:00 70 07/07/22 20:00 70 07/08/22 00:00 98.7 F 62 16 123/71 94 L 07/07/22 20:00 97.9 F 72 20 103/62 L 94 L 07/07/22 19:56 99 07/07/22 16:00 72 07/07/22 16:00 97.9 F 69 18 103/62 L 98 07/07/22 12:00 64 07/07/22 11:49 97.9 F 68 15 104/54 L 98 Intake and Output 07/07/22 07/08/22 07/08/22 23:59 07:59 15:59 Intake Total 3298 / 3538 240 / 240 Output Total 1500 / 2000 500 / 500 Balance 1798 / 1538 -260 / -260 Intake: Intake, Oral Amount 240 / 480 240 / 240 Intake, Other Amount 3058 / 3058 Output: Output, Urine Amount 1500 / 2000 500 / 500 Other: Number of Unmeasured Voids 0 0 Number of Bowel Movements 1 Weight 101.151 kg Patient Weight 07/08/22 23:59 Weight 101.151 kg Laboratory Results - last 24 hr 07/07/22 06:30: Total Creatine Kinase 12567 H* 07/07/22 10:59: POC Glucose 86 07/07/22 16:46: POC Glucose 84 07/07/22 20:12: Sodium 137, Potassium 3.9, Chloride 108 H, Carbon Dioxide 24, Anion Gap 8.9, BUN 31 H, Creatinine 0.70 D, Estimated Creat Clear 92, Estimated GFR 110, Est GFR ( Amer) 133 D, Glucose 131 H D, Calcium 8.0 L 07/07/22 20:14: POC Glucose 162 H 07/08/22 05:06: POC Glucose 89 07/08/22 07:00: WBC 5.6 D, RBC 4.56 L, Hgb 14.0 L, Hct 44.1, MCV 96.5 H, MCH 30.6, MCHC 31.7 L, RDW 14.6, Plt Count 80 L D, MPV 8.5, Neut % (Auto) 65.3, Lymph % (Auto) 21.2, [place] % (Auto) 9.1, Eos % (Auto) 3.8, Baso % (Auto) 0.5, Neut # (Auto) 3.7, Lymph # (Auto) 1.2, [place] # (Auto) 0.5, Eos # (Auto) 0.2, Baso # (Auto) 0.0 07/08/22 07:00: Sodium 139, Potassium 4.5, Chloride 110 H, Carbon Dioxide 27, Anion Gap 6.5, BUN 26 H, Creatinine 0.50 L D, Estimated Creat Clear 91, Estimated GFR 162, Est GFR ( Amer) 196 D, Glucose 81 D, Calcium 8.2 L, Phosphorus 2.1 L D, Magnesium 2.3, Total Bilirubin 0.9, AST 338 H*, ALT 51 D, Alkaline Phosphatase 81, Total Creatine Kinase 8279 H* D, Total Protein 4.7 L, Albumin 2.5 L D, Globulin 2.2, Albumin/Globulin Ratio 1.1 I & O for Labs for Last 24 Hours: Intake & Output 07/05/22 07/06/22 07/07/22 07/08/22 23:59 23:59 23:59 23:59 Intake Total 572 / 572 3538 / 3538 240 / 240 Output Total 850 / 850 1999 / 1999 500 / 500 Balance -278 / -278 1538 / 1538 -260 / -260 Weight 102.058 kg 102.058 kg 101.151 kg Constitutional: Present no acute distress, obese, chronically ill appearing, disheveled and cooperative Head: Present atraumatic and normocephalic ENT: Present normal exam Neck: Present normal inspection Respiratory: Present crackles, normal respiratory effort and able to speak in complete sentences; Absent accessory muscle use, rhonchi or wheezes Cardiac: Present Reg Rate and Rhythm GI: Present soft and normal bowel sounds; Absent distention or tenderness Extremities: Present normal inspection and full ROM Comment:: Ecchymoses on arm Skin: Present intact and ecchymosis; Absent erythema Neuro: Present Grossly Intact, alert, awake, oriented x 3 and moves all extremities Assessment and Plan *Assessment and plan (1) Sepsis: Status: Acute Category: Medical Code(s): A41.9 - Sepsis, unspecified organism (2) Multi-organ system dysfunction: Status: Acute Category: Medical (3) Hypothermia: Status: Resolved Category: Medical
[2022-07-08 11:23] LABS: POC Glucose,Bedside 94 (70-110)
[2022-07-08 14:06] LABS: Lactate Dehydrogenase 474 U/L (313-618)
[2022-07-08 14:22] LABS: Hemoglobin A1C 5.7 % (4.0-6.0)
[2022-07-08 16:43] LABS: POC Glucose,Bedside 141 (70-110)
[2022-07-08 18:38] LABS: Chloride 107 mmol/L (98-107); Potassium 3.8 mmoL/L (3.5-5.1); Sodium 139 mmol/L (136-145)
[2022-07-08 18:40] LABS: Blood Urea Nitrogen 19 mg/dl (9-20); Creatinine Clearance Estimated 91 mL/min (50-200); Estimated Glomerular Filt Rate 162 ml/min (>60); GFR (African American) 196 ML/MIN (>60)
[2022-07-08 18:41] LABS: Anion Gap 5.8 mEq/L (5-15); Calcium 8.1 mg/dl (8.4-10.2); Carbon Dioxide 30 mmol/L (22.0-30.0); Glucose 150 mg/dl (74-100)
[2022-07-08 20:41] LABS: POC Glucose,Bedside 110 (70-110)
[2022-07-08 23:22] LABS: Vancomycin,Trough 9.8 ug/mL (5.0-10.0)
--- NOTE | 2022-07-08 23:46 | PC.NURSE ---
Spoke with Adelia at [facility] pharmacy, states it is ok to give 2300 Vanc dose based on 9.8 Vanc trough result.
[2022-07-09] VITALS (8 sets, daily range): BP systolic 110–179; BP diastolic 72–91; PULSE 60–80; RESP 16–31; TEMP 36.4–37; O2SAT 93–98; BMI 33.0
[2022-07-09 04:18] LABS: Vancomycin,Peak 22.1 ug/ml (11-39)
[2022-07-09 06:21] LABS: POC Glucose,Bedside 104 (70-110)
[2022-07-09 06:27] LABS: Chloride 111 mmol/L (98-107)
[2022-07-09 06:28] LABS: Potassium 4.5 mmoL/L (3.5-5.1); Sodium 140 mmol/L (136-145)
[2022-07-09 06:30] LABS: Alanine Aminotransferase 54 U/L (12-78); Aspartate Amino Transferase 273 U/L (17-59); Blood Urea Nitrogen 18 mg/dl (9-20); Creatinine Clearance Estimated 91 mL/min (50-200); Estimated Glomerular Filt Rate 162 ml/min (>60); GFR (African American) 196 ML/MIN (>60)
[2022-07-09 06:31] LABS: Albumin Level 2.5 g/dl (3.5-5.0); Albumin/Globulin Ratio 1.1 (1.1-1.8); Alkaline Phosphatase 86 U/L (38-126); Anion Gap 6.5 mEq/L (5-15); Bilirubin,Total 1.1 mg/dl (0.2-1.3); Calcium 8.3 mg/dl (8.4-10.2); Carbon Dioxide 27 mmol/L (22.0-30.0); Globulin 2.3 g/dL (1.3-3.2); Glucose 93 mg/dl (74-100); Total Protein,Serum 4.8 g/dl (6.3-8.2)
--- NOTE | 2022-07-09 06:51 | PC.NURSE ---
VS stable t/o night. Pt is tolerating RA well with sats in mid 90s. Pt telemetry has been NSR with bigemeny at times. Pt has not voiced any c/o to staff. Call light within reach.
[2022-07-09 07:19] LABS: Basophils % 0.6 % (0.1-2.0); Eosinophils # 0.4 K/mm3 (0.0-0.4); Eosinophils % 5.7 % (0.1-12.0); Hematocrit 36.5 % (42.0-52.0); Lymphocytes # 1.7 K/mm3 (0.7-4.5); Lymphocytes % 24.4 % (10-50); Mean Corpuscular HGB Conc 31.5 g/dL (31.8-35.4); Mean Corpuscular Hemoglobin 30.7 pg (27.0-31.2); Mean Corpuscular Volume 97.4 fl (80-94); Mean Platelet Volume 9.7 fl (7.4-10.4); Monocytes # 0.6 K/mm3 (0.1-1.0); Neutrophils # 4.3 K/mm3 (1.8-7.8); Neutrophils % 61.3 % (37.0-80.0); Platelet Count 121 K/mm3 (142-424); Red Blood Count 3.75 M/mm3 (4.60-6.20); Red Cell Distribution Width 14.5 % (11.5-17.5)
[2022-07-09 07:26] LABS: Hemoglobin 11.5 g/dL (14.1-18.0)
--- NOTE | 2022-07-09 08:38 | EXP.PHA.CONS ---
Pharmacy Consult Date: 07/09/22 Time: 08:38 Referring provider: DR LIRA Reason for Consult:: VANCOMYCIN PEAK AND TROUGH LEVELS OBTAINED. Allergies Allergy/AdvReac Type Severity Reaction Status Date / Time Penicillins Allergy Verified 07/06/22 10:48 TAPE Allergy Unknown BLISTERS Uncoded 12/12/21 13:07 SKIN, CLEAR PLASTIC TAPE Home Medications Medication Instructions Recorded Confirmed Type cholecalciferol (vitamin D3) 25 1,000 unit PO BID Supplement 09/15/18 07/06/22 History mcg (1,000 unit) capsule furosemide 40 mg tablet 40 mg PO DAILY Fluid #30 tabs 09/15/18 07/06/22 History lisinopril 20 1 tab PO DAILY Hypertension #90 09/15/18 07/06/22 History mg-hydrochlorothiazide 12.5 mg tabs tablet metformin 500 mg tablet 500 mg PO BID Diabetes 09/15/18 07/06/22 History simvastatin 20 mg tablet 20 mg PO HS Cholesterol 09/15/18 07/06/22 History aspirin 81 mg tablet,delayed 81 mg PO DAILY heart health 04/03/21 07/06/22 History release (Adult Aspirin Regimen) sertraline 100 mg tablet 100 mg PO DAILY mood 04/03/21 07/06/22 History primidone 50 mg tablet 100 mg PO HS tremor 90 days #180 04/12/22 07/06/22 Rx tabs New Prescriptions to Start Prescriptions: Height: 1.75 m Weight: 101.208 kg Laboratory Results:: Laboratory Results - last 24 hr 07/06/22 10:30: Hemoglobin A1c 5.7 07/08/22 07:00: Sodium 139, Potassium 4.5, Chloride 110 H, Carbon Dioxide 27, Anion Gap 6.5, BUN 26 H, Creatinine 0.50 L D, Estimated Creat Clear 91, Estimated GFR 162, Est GFR ( Amer) 196 D, Glucose 81 D, Calcium 8.2 L, Phosphorus 2.1 L D, Magnesium 2.3, Total Bilirubin 0.9, AST 338 H*, ALT 51 D, Alkaline Phosphatase 81, Total Creatine Kinase 8279 H* D, Total Protein 4.7 L, Albumin 2.5 L D, Globulin 2.2, Albumin/Globulin Ratio 1.1 07/08/22 10:32: Lactate Dehydrogenase 474 07/08/22 10:32: PT 12.5, INR 1.17 H, APTT 27.0 07/08/22 11:16: POC Glucose 94 07/08/22 16:33: POC Glucose 141 H 07/08/22 18:05: Sodium 139, Potassium 3.8, Chloride 107, Carbon Dioxide 30, Anion Gap 5.8, BUN 19 D, Creatinine 0.50 L, Estimated Creat Clear 91, Estimated GFR 162, Est GFR ( Amer) 196, Glucose 150 H D, Calcium 8.1 L 07/08/22 20:01: POC Glucose 110 07/08/22 22:30: Vancomycin Trough 9.8 07/09/22 03:20: Vancomycin Peak 22.1 07/09/22 05:50: WBC 7.0, RBC 3.75 L, Hgb 11.5 L D, Hct 36.5 L, MCV 97.4 H, MCH 30.7, MCHC 31.5 L, RDW 14.5, Plt Count 121 L D, MPV 9.7, Neut % (Auto) 61.3, Lymph % (Auto) 24.4, [place] % (Auto) 8.0, Eos % (Auto) 5.7, Baso % (Auto) 0.6, Neut # (Auto) 4.3, Lymph # (Auto) 1.7, [place] # (Auto) 0.6, Eos # (Auto) 0.4, Baso # (Auto) 0.0 07/09/22 05:50: Magnesium 2.0 D 07/09/22 05:50: Sodium 140, Potassium 4.5, Chloride 111 H, Carbon Dioxide 27, Anion Gap 6.5, BUN 18, Creatinine 0.50 L, Estimated Creat Clear 91, Estimated GFR 162, Est GFR ( Amer) 196, Glucose 93 D, Calcium 8.3 L, Total Bilirubin 1.1, AST 273 H, ALT 54, Alkaline Phosphatase 86, Total Protein 4.8 L, Albumin 2.5 L, Globulin 2.3, Albumin/Globulin Ratio 1.1 07/09/22 05:50: POC Glucose 104 Medical History: Medical History (Updated 07/07/22 @ 09:06 by Taj Lira MD) Diabetes Hypertension Kidney stones Nervousness Assessment and Plan Assessment and plan all Dx Assessment and Plan for all problems:: VANCOMYCIN PEAK AND TROUGH LEVELS OBTAINED. TROUGH LEVEL : 9.8 MCG/ML (07/08/22 22:30) PEAK LEVEL: 22.1 MCG/ML (07/09/22 03:20) CALCULATED VALUES Percent above / below IBW: 44.9 % CRCL: 107.2 (ml/min). BMI: 33.34 Maurizio: 0.093 (hr-1) Adjusted body weight: 83.1 kg T 1/2: 7.45 (hrs) Serum Creatinine: 0.7 mg/dL ti (hrs): 2.0 Dosing weight: 102.1 kg Vd (liters): 71.47 liters (factor used: 0.7 L/kg). Dosing weight: Total body weight is being used for vancomycin dosing. CRCL method: Cockcroft and Gault using adjusted body weight - all patients with a BMI over 25 based on the latest evidence. CLvanco= 6.647 L/hr RECOMMENDED DOSE AND PREDIC
--- NOTE | 2022-07-09 09:50 | EXP.ACUTE.PN ---
Subjective *Date: 07/09/22 *Time: 09:52 Interval history: Patient states he is feeling better this morning. In bedside chair on rounds. No chest pain or shortness of breath. On room air. Tolerating p.o. intake. No nausea or vomiting. Tremor noted at rest Medical Exam Vital signs and Labs for Last 24 Hours: Vital Signs Temp Pulse Pulse Resp BP Pulse Ox 07/09/22 08:00 97.9 F 76 31 H 163/91 H 95 07/09/22 04:00 60 07/09/22 00:00 70 07/08/22 20:00 70 07/09/22 04:00 98.1 F 60 16 138/89 96 07/08/22 23:30 94 L 07/09/22 00:00 98.5 F 71 20 130/76 93 L 07/08/22 21:00 98 07/08/22 20:05 98 07/08/22 20:00 98.6 F 66 24 130/78 98 07/08/22 16:00 70 07/08/22 12:00 62 07/08/22 16:00 98.2 F 67 24 150/94 H 98 07/08/22 11:44 97.3 F L 61 15 130/80 99 Intake and Output 07/08/22 07/09/22 07/09/22 23:59 07:59 15:59 Intake Total 240 / 1483 1173 / 1173 Output Total 1500 / 2800 600 / 600 0 / 600 Balance -1260 / -1317 573 / 573 0 / 573 Intake: Intake, Oral Amount 240 / 960 Intake, Total IV Amount 1173 / 1173 Cefepime HCl 2 gm In 0.9 % 285 / 285 Sodium Chloride 100 ml @ 200 mls/hr IV Q8H [facility] Rx#:[id number] Metronidaz/Sod Chl 500 mg In 100 / 100 100 ml @ 100 mls/hr IV ONCE ONE Rx#:[id number] Metronidaz/Sod Chl 500 mg In 100 / 100 100 ml @ 100 mls/hr IV Q8H [facility] Rx#:[id number] Vancomycin/Water For Inj (Peg) 338 / 338 1.75 gm In 350 ml @ 175 mls/hr IV ONCE ONE Rx#:[id number] Vancomycin/Water For Inj (Peg) 350 / 350 1.75 gm In 350 ml @ 175 mls/hr IV Q18H [facility] Rx#:[id number] Output: Output, Urine Amount 1500 / 2800 600 / 600 0 / 600 Other: Number of Unmeasured Voids 0 0 1 Weight 101.208 kg 101.208 kg Patient Weight 07/09/22 23:59 Weight 101.208 kg Laboratory Results - last 24 hr 07/06/22 10:30: Hemoglobin A1c 5.7 07/08/22 07:00: Potassium 4.5, Anion Gap 6.5, Magnesium 2.3, Total Creatine Kinase 8279 H* D 07/08/22 10:32: Lactate Dehydrogenase 474 07/08/22 10:32: PT 12.5, INR 1.17 H, APTT 27.0 07/08/22 11:16: POC Glucose 94 07/08/22 16:33: POC Glucose 141 H 07/08/22 18:05: Sodium 139, Potassium 3.8, Chloride 107, Carbon Dioxide 30, Anion Gap 5.8, BUN 19 D, Creatinine 0.50 L, Estimated Creat Clear 91, Estimated GFR 162, Est GFR ( Amer) 196, Glucose 150 H D, Calcium 8.1 L 07/08/22 20:01: POC Glucose 110 07/08/22 22:30: Vancomycin Trough 9.8 07/09/22 03:20: Vancomycin Peak 22.1 07/09/22 05:50: WBC 7.0, RBC 3.75 L, Hgb 11.5 L D, Hct 36.5 L, MCV 97.4 H, MCH 30.7, MCHC 31.5 L, RDW 14.5, Plt Count 121 L D, MPV 9.7, Neut % (Auto) 61.3, Lymph % (Auto) 24.4, [place] % (Auto) 8.0, Eos % (Auto) 5.7, Baso % (Auto) 0.6, Neut # (Auto) 4.3, Lymph # (Auto) 1.7, [place] # (Auto) 0.6, Eos # (Auto) 0.4, Baso # (Auto) 0.0 07/09/22 05:50: Magnesium 2.0 D 07/09/22 05:50: Sodium 140, Potassium 4.5, Chloride 111 H, Carbon Dioxide 27, Anion Gap 6.5, BUN 18, Creatinine 0.50 L, Estimated Creat Clear 91, Estimated GFR 162, Est GFR ( Amer) 196, Glucose 93 D, Calcium 8.3 L, Total Bilirubin 1.1, AST 273 H, ALT 54, Alkaline Phosphatase 86, Total Protein 4.8 L, Albumin 2.5 L, Globulin 2.3, Albumin/Globulin Ratio 1.1 07/09/22 05:50: POC Glucose 104 I & O for Labs for Last 24 Hours: Intake & Output 07/06/22 07/07/22 07/08/22 07/09/22 23:59 23:59 23:59 23:59 Intake Total 572 / 572 3538 / 3538 960 / 1483 1173 / 1173 Output Total 850 / 850 1999 / 1999 2800 / 2800 600 / 600 Balance -278 / -278 1538 / 1538 -1840 / -1317 573 / 573 Weight 102.058 kg 102.058 kg 101.151 kg 101.208 kg Microbiology Reports for the Last 24 Hours: Microbiology 07/06/22 11:41 Blood Blood Culture - Preliminary NO GROWTH AFTER 48 HOURS 07/06/22 11:21 Blood Blood Culture - Preliminary NO GROWTH AFTER 48 HOURS Const
--- NOTE | 2022-07-09 10:09 | HMH.OTEV ---
OT Inpatient Evaluation Rehab OT IP Evaluation Start: 07/08/22 16:53 Freq: ONCE Status: Active Protocol: Document 07/09/22 10:00 [facility] (Rec: 07/09/22 10:09 [facility] [id number]) Rehab OT IP Assessment Subjective History Pt oriented x 3 on arrival. Pt agreeable to engage in therapy evaluation. Pt was admitted on 07/06/22 due to hypothermia and multi organ failure. Prior to being in the hospital. Pt lived at home alone. Pt's girlfriend was living with him, but she had to move in with family recently due to illness. Pt claims he was independent with all ADLs and IADLs. He did not use any type of AE during ambulation. Subjective I can go back home. Objective Patient Orientation Person,Place,Birthday Upper Extremity Gross ROM WFL Bed Mobility bed mobility-scooting,bed mobility - supine/sit,bed mobility - rolling Assist Level Minimal x 1 (25% assist) Transfer Training Sit/Stand Transfer,Sit/Stand/ Step Transfer Assist Level Minimal x 1 (25% assist) Chair Transfer Ability Minimal x 1 (25% assist) Chair Transfer Technique Stand Step Pivot Chair Transfer Assistive Devices None Rehab OT IP prob,goals,plan Problems Date of Evaluation: 07/09/22 OT IP Problems Bed Mobility,Transfers,Balance ,Self care,Safety Rehab Potential Rehab Potential Good Equipment Needs Assistive Devices Rolling / Wheeled Walker Plan OT intervention Plan Bed Mobility,Transfers,Balance ,Self care,Safety,Therapeutic Exercise OT Plan Frequency BID Duration LOS Discharge Goals Bed Mobility Ability Standby Assistance Sit to Stand Chair Transfer Ability Contact Guard/Hand Hold Chair Transfer Ability Contact Guard/Hand Hold Chair Transfer Technique Sit to/from Ambulatory Chair Transfer Assistive Devices Rolling Walker Feeding Ability Assist with Tray Set Up Lower Body Dressing Ability Assistance X1 Upper Body Dressing Ability Standby Assistance Bathing Ability Assistance x1 Performing Toilet Hygiene Ability Assistance X1 Overall Commode/Toilet Tra
--- NOTE | 2022-07-09 10:11 | EXP.PHA.PN ---
Subjective *Date: 07/09/22 *Time: 10:13 Medical Exam Vital signs and Labs for Last 24 Hours: Vital Signs Temp Pulse Pulse Resp BP Pulse Ox 07/09/22 08:00 97.9 F 76 31 H 163/91 H 95 07/09/22 04:00 60 07/09/22 00:00 70 07/08/22 20:00 70 07/09/22 04:00 98.1 F 60 16 138/89 96 07/08/22 23:30 94 L 07/09/22 00:00 98.5 F 71 20 130/76 93 L 07/08/22 21:00 98 07/08/22 20:05 98 07/08/22 20:00 98.6 F 66 24 130/78 98 07/08/22 16:00 70 07/08/22 12:00 62 07/08/22 16:00 98.2 F 67 24 150/94 H 98 07/08/22 11:44 97.3 F L 61 15 130/80 99 Intake and Output 07/08/22 07/09/22 07/09/22 23:59 07:59 15:59 Intake Total 240 / 1483 1173 / 1173 Output Total 1500 / 2800 600 / 600 0 / 600 Balance -1260 / -1317 573 / 573 0 / 573 Intake: Intake, Oral Amount 240 / 960 Intake, Total IV Amount 1173 / 1173 Cefepime HCl 2 gm In 0.9 % 285 / 285 Sodium Chloride 100 ml @ 200 mls/hr IV Q8H [facility] Rx#:[id number] Metronidaz/Sod Chl 500 mg In 100 / 100 100 ml @ 100 mls/hr IV ONCE ONE Rx#:[id number] Metronidaz/Sod Chl 500 mg In 100 / 100 100 ml @ 100 mls/hr IV Q8H [facility] Rx#:[id number] Vancomycin/Water For Inj (Peg) 338 / 338 1.75 gm In 350 ml @ 175 mls/hr IV ONCE ONE Rx#:[id number] Vancomycin/Water For Inj (Peg) 350 / 350 1.75 gm In 350 ml @ 175 mls/hr IV Q18H [facility] Rx#:[id number] Output: Output, Urine Amount 1500 / 2800 600 / 600 0 / 600 Other: Number of Unmeasured Voids 0 0 1 Weight 101.208 kg 101 kg Patient Weight 07/09/22 23:59 Weight 101 kg Laboratory Results - last 24 hr 07/06/22 10:30: Hemoglobin A1c 5.7 07/08/22 07:00: Potassium 4.5, Anion Gap 6.5, Magnesium 2.3, Total Creatine Kinase 8279 H* D 07/08/22 10:32: Lactate Dehydrogenase 474 07/08/22 10:32: PT 12.5, INR 1.17 H, APTT 27.0 07/08/22 11:16: POC Glucose 94 07/08/22 16:33: POC Glucose 141 H 07/08/22 18:05: Sodium 139, Potassium 3.8, Chloride 107, Carbon Dioxide 30, Anion Gap 5.8, BUN 19 D, Creatinine 0.50 L, Estimated Creat Clear 91, Estimated GFR 162, Est GFR ( Amer) 196, Glucose 150 H D, Calcium 8.1 L 07/08/22 20:01: POC Glucose 110 07/08/22 22:30: Vancomycin Trough 9.8 07/09/22 03:20: Vancomycin Peak 22.1 07/09/22 05:50: WBC 7.0, RBC 3.75 L, Hgb 11.5 L D, Hct 36.5 L, MCV 97.4 H, MCH 30.7, MCHC 31.5 L, RDW 14.5, Plt Count 121 L D, MPV 9.7, Neut % (Auto) 61.3, Lymph % (Auto) 24.4, [place] % (Auto) 8.0, Eos % (Auto) 5.7, Baso % (Auto) 0.6, Neut # (Auto) 4.3, Lymph # (Auto) 1.7, [place] # (Auto) 0.6, Eos # (Auto) 0.4, Baso # (Auto) 0.0 07/09/22 05:50: Magnesium 2.0 D 07/09/22 05:50: Sodium 140, Potassium 4.5, Chloride 111 H, Carbon Dioxide 27, Anion Gap 6.5, BUN 18, Creatinine 0.50 L, Estimated Creat Clear 91, Estimated GFR 162, Est GFR ( Amer) 196, Glucose 93 D, Calcium 8.3 L, Total Bilirubin 1.1, AST 273 H, ALT 54, Alkaline Phosphatase 86, Total Protein 4.8 L, Albumin 2.5 L, Globulin 2.3, Albumin/Globulin Ratio 1.1 07/09/22 05:50: POC Glucose 104 I & O for Labs for Last 24 Hours: Intake & Output 07/06/22 07/07/22 07/08/22 07/09/22 23:59 23:59 23:59 23:59 Intake Total 572 / 572 3538 / 3538 960 / 1483 1173 / 1173 Output Total 850 / 850 1999 / 1999 2800 / 2800 600 / 600 Balance -278 / -278 1538 / 1538 -1840 / -1317 573 / 573 Weight 102.058 kg 102.058 kg 101.151 kg 101 kg Microbiology Reports for the Last 24 Hours: Microbiology 07/06/22 11:41 Blood Blood Culture - Preliminary NO GROWTH AFTER 48 HOURS 07/06/22 11:21 Blood Blood Culture - Preliminary NO GROWTH AFTER 48 HOURS The patient's infection will respond to the chosen ABx?: Yes (BLOOD CULTURES NO GROWTH) Is the patient receiving the right drug, dose, and route?: Yes Could a more targeted ABx be ordered?: No
--- NOTE | 2022-07-09 10:55 | XR_ITS ---
FINAL REPORT CLINICAL HISTORY: crackles, dyspnea COMPARISON: July 06, 2022 FINDINGS: The heart is mildly enlarged. The mediastinum is within normal limits. There are chronic changes in both lungs particularly in the lung bases. There is no pleural effusion. There is no pneumothorax. The bony thorax is intact. IMPRESSION: Chronic changes similar to prior. Reviewed, Interpreted and Dictated by Noam Lomas MD Transcribed by Livan Mora Authenticated and [facility]
[2022-07-09 11:57] LABS: POC Glucose,Bedside 112 (70-110)
--- NOTE | 2022-07-09 12:18 | HMH.PTEV ---
Physical Therapy Evaluation Rehab PT IP Evaluation Start: 07/08/22 08:58 Freq: ONCE Status: Active Protocol: Document 07/09/22 12:00 [facility] (Rec: 07/09/22 12:17 [facility] [id number]) Subjective/History History History Pt is a 77 year old male that was brought in by EMS after being found down. History from pt was limited due to pt's clinical status. In the ED, pt was found to be hypotensive and was started on warmed lactated Ringers. Pt remained hypotensive and required Levophed for pressor support. Bedside echo was performed which revealed globally hypokinetic left ventricle with EF 40%. Subjective Subjective Pt presents seated in bedside chair, pleasant and agreeable to PT initial evaluation. Pt denies reports of pain at rest . Pt states that he was trying to get inside his house when he fell outside. Pt reports that he lives alone in a H with 0 MEENA, states that sometimes his girlfriend stays there with him. Pt reports that he occasionally uses a RW and a cane at home when he is feeling weak. Pt performed sit to stand transfer with min A x1 and the use of a RW. Pt performed 15' of ambulation with a RW and min A x1. Rehab PT IP Eval Objective Appearance Patient Behavior Appropriate Patient Orientation Person,Place,Situation Difficulty following instructions none Speech Pattern Clear,Appropriate Ambulation Patient Able to Ambulate Yes Ambulation Observation IP General Gait Pattern Observation Wide Based Gait Ambulation Distance (feet) 15 Ambulation Assistive Device Rolling Walker Ambulation Ability Minimal x 1 (25% assist) Balance Ability to Arise Able, uses arms to help Sitting Balance Steady, safe Standing Balance Steady, wide stance Dynamic Sitting Balance Ability Fair Dynamic Standing Balance Ability Fair Transfers Chair Transfer Ability
[2022-07-09 15:09] LABS: Haptoglobin 55 mg/dL (34-355)
--- NOTE | 2022-07-09 16:05 | CARE MANAGER ---
Addendum entered by Caitlyn Darby RN 07/10/22 13:30: Patient discharging today, Covid test completed and negative prior to discharge. Plan is for daughter to transport. Original Note: Spoke with patient and daughter regarding dischrge planning. Per PT/OT, patient will need to discharge to a SNF for rehab. Referral faxed to [facility] and [facility]. Patient has a bed at [facility] tomorrow, 07/10/2022.
--- NOTE | 2022-07-09 16:13 | PC.NURSE ---
Pt A&O x3. Has not stated any complaints this shift. F/C DC. Pt has ambulated with assistance to chair and BR. Tolerated well. Edema noted to BUE. Lasix administered per mar. New IVs placed this shift. Call light within reach. Safety measures in place. Family at bedside
[2022-07-09 20:23] LABS: POC Glucose,Bedside 132 (70-110)
[2022-07-10] VITALS (7 sets, daily range): BP systolic 127–147; BP diastolic 59–85; PULSE 66–95; RESP 17–18; TEMP 36.6–36.9; O2SAT 93–95; BMI 38.5
--- NOTE | 2022-07-10 01:57 | P.PN_ITS ---
Subjective *Date: 07/10/22 *Time: 01:57 Exam Data for Last 24 hours Vital signs and Labs for Last 24 Hours: Temp Pulse Resp BP Pulse Ox 98.3 F 73 18 135/59 L 93 L 07/10/22 00:00 07/10/22 00:00 07/10/22 00:00 07/10/22 00:00 07/10/22 00:00 Laboratory Results - last 24 hr 07/08/22 10:32: Haptoglobin 55 07/09/22 03:20: Vancomycin Peak 22.1 07/09/22 05:50: WBC 7.0, RBC 3.75 L, Hgb 11.5 L D, Hct 36.5 L, MCV 97.4 H, MCH 30.7, MCHC 31.5 L, RDW 14.5, Plt Count 121 L D, MPV 9.7, Neut % (Auto) 61.3, Lymph % (Auto) 24.4, [place] % (Auto) 8.0, Eos % (Auto) 5.7, Baso % (Auto) 0.6, Neut # (Auto) 4.3, Lymph # (Auto) 1.7, [place] # (Auto) 0.6, Eos # (Auto) 0.4, Baso # (Auto) 0.0 07/09/22 05:50: Magnesium 2.0 D 07/09/22 05:50: Sodium 140, Potassium 4.5, Chloride 111 H, Carbon Dioxide 27, Anion Gap 6.5, BUN 18, Creatinine 0.50 L, Estimated Creat Clear 91, Estimated GFR 162, Est GFR ( Amer) 196, Glucose 93 D, Calcium 8.3 L, Total Bilirubin 1.1, AST 273 H, ALT 54, Alkaline Phosphatase 86, Total Protein 4.8 L, Albumin 2.5 L, Globulin 2.3, Albumin/Globulin Ratio 1.1 07/09/22 05:50: POC Glucose 104 07/09/22 11:49: POC Glucose 112 H 07/09/22 20:16: POC Glucose 132 H I & O for Last 24 hours: Intake & Output 07/07/22 07/08/22 07/09/22 07/10/22 23:59 23:59 23:59 23:59 Intake Total 3538 / 3538 960 / 1483 1733 / 1733 Output Total 1999 2800 / 2800 1550 / 1550 0 / 0 Balance 1538 / 1538 -1840 / -1317 183 / 183 0 / 0 Weight 102.058 kg 101.151 kg 101 kg Assessment and Plan *Assessment and plan Plan Mr. Ansari is a 77 year old male with a past medical history of hypertension, hyperlipidemia, type 2 DM, CHANO on CPAP and obesity. He was admitted with hypothermia and shock on 07/06 after being found own in the rain by EMS. Empiric antibiotics and levophed were initiated. Hypothermia resolved after bear hugger and warmed LR. LEAH and hypernatremia resolved after fluid resuscitation. #shock #thrombocytopenia #possible sepsis #anion gap metabolic acidosis #rhabdoymyolysis #NSTEMI, likely type 2 yesterday a dose of lasix was given continuing broad spectrum antibiotics for possible sepsis. Continuing levophed to maintain MAP>/= 65mmHg. Echo is pending. DIC panel is pending continue holding home medications of lisinopril/hctz/furosemide Full code DVT ppx: holding pharmacologic prophylaxis due to thrombocytopenia Soft diet
[2022-07-10 06:02] LABS: Basophils % 0.6 % (0.1-2.0); Eosinophils # 0.5 K/mm3 (0.0-0.4); Eosinophils % 7.3 % (0.1-12.0); Hematocrit 37.2 % (42.0-52.0); Hemoglobin 11.7 g/dL (14.1-18.0); Lymphocytes # 2.1 K/mm3 (0.7-4.5); Lymphocytes % 33.8 % (10-50); Mean Corpuscular HGB Conc 31.3 g/dL (31.8-35.4); Mean Corpuscular Hemoglobin 30.4 pg (27.0-31.2); Mean Corpuscular Volume 97.1 fl (80-94); Mean Platelet Volume 7.7 fl (7.4-10.4); Monocytes # 0.6 K/mm3 (0.1-1.0); Monocytes % 10.4 % (1.7-9.3); Neutrophils # 2.9 K/mm3 (1.8-7.8); Neutrophils % 47.8 % (37.0-80.0); Platelet Count 107 K/mm3 (142-424); Red Blood Count 3.83 M/mm3 (4.60-6.20); Red Cell Distribution Width 14.7 % (11.5-17.5); White Blood Count 6.1 K/mm3 (4.8-10.8)
[2022-07-10 06:15] LABS: Chloride 107 mmol/L (98-107)
[2022-07-10 06:16] LABS: Potassium 4.5 mmoL/L (3.5-5.1); Sodium 137 mmol/L (136-145)
[2022-07-10 06:18] LABS: Alanine Aminotransferase 59 U/L (12-78); Alkaline Phosphatase 92 U/L (38-126); Anion Gap 5.5 mEq/L (5-15); Aspartate Amino Transferase 246 U/L (17-59); Bilirubin,Total 1.2 mg/dl (0.2-1.3); Blood Urea Nitrogen 16 mg/dl (9-20); Carbon Dioxide 29 mmol/L (22.0-30.0); Creatinine Clearance Estimated 107 mL/min (50-200); Estimated Glomerular Filt Rate 210 ml/min (>60); GFR (African American) 254 ML/MIN (>60); Glucose 101 mg/dl (74-100)
[2022-07-10 06:19] LABS: Albumin Level 2.4 g/dl (3.5-5.0); Albumin/Globulin Ratio 1.1 (1.1-1.8); Calcium 8.2 mg/dl (8.4-10.2); Globulin 2.2 g/dL (1.3-3.2); Total Protein,Serum 4.6 g/dl (6.3-8.2)
[2022-07-10 08:47] LABS: Creatine Kinase 3305 U/L (55-170)
[2022-07-10 09:07] LABS: Peripheral Smear Review Scanned Result
--- NOTE | 2022-07-10 09:40 | EXP.PHA.PN ---
Subjective *Date: 07/10/22 *Time: 09:40 Medical Exam Vital signs and Labs for Last 24 Hours: Vital Signs Temp Pulse Pulse Resp BP Pulse Ox 07/10/22 08:02 80 07/10/22 08:29 95 07/10/22 07:31 98.1 F 71 18 127/82 94 L 07/10/22 05:00 68 07/10/22 04:00 97.9 F 77 18 147/85 H 94 L 07/10/22 00:00 95 H 07/10/22 00:00 98.3 F 73 18 135/59 L 93 L 07/09/22 20:00 75 07/09/22 20:00 98.6 F 78 20 172/89 H 95 07/09/22 16:00 68 07/09/22 12:15 80 07/09/22 15:06 71 25 H 110/72 98 07/09/22 11:20 97.6 F 68 18 179/85 H 95 Intake and Output 07/09/22 07/10/22 07/10/22 23:59 07:59 15:59 Intake Total 560 / 1733 580 / 580 Output Total 300 / 1550 0 / 0 Balance 260 / 183 580 / 580 Intake: Intake, Oral Amount 360 / 360 180 / 180 Intake, Total IV Amount 200 / 1373 400 / 400 Cefepime HCl 2 gm In 0.9 % 100 / 385 200 / 200 Sodium Chloride 100 ml @ 200 mls/hr IV Q8H [facility]IG[facility] Rx#:[id number] Metronidaz/Sod Chl 500 mg In 100 / 200 200 / 200 100 ml @ 100 mls/hr IV Q8H [facility]IG[facility] Rx#:[id number] Output: Output, Urine Amount 300 / 1550 0 / 0 Other: Number of Voids 0 Number of Unmeasured Voids 1 Weight 118.025 kg Patient Weight 07/10/22 23:59 Weight 118.025 kg Laboratory Results - last 24 hr 07/08/22 10:32: Haptoglobin 55 07/09/22 11:49: POC Glucose 112 H 07/09/22 20:16: POC Glucose 132 H 07/10/22 05:32: WBC 6.1, RBC 3.83 L, Hgb 11.7 L, Hct 37.2 L, MCV 97.1 H, MCH 30.4, MCHC 31.3 L, RDW 14.7, Plt Count 107 L, MPV 7.7, Neut % (Auto) 47.8, Lymph % (Auto) 33.8, [place] % (Auto) 10.4 H, Eos % (Auto) 7.3, Baso % (Auto) 0.6, Neut # (Auto) 2.9, Lymph # (Auto) 2.1, [place] # (Auto) 0.6, Eos # (Auto) 0.5 H, Baso # (Auto) 0.0 07/10/22 05:32: Sodium 137, Potassium 4.5, Chloride 107, Carbon Dioxide 29, Anion Gap 5.5, BUN 16, Creatinine 0.40 L, Estimated Creat Clear 107, Estimated GFR 210, Est GFR ( Amer) 254 D, Glucose 101 H, Calcium 8.2 L, Total Bilirubin 1.2, AST 246 H, ALT 59, Alkaline Phosphatase 92, Total Creatine Kinase 3305 H* D, Total Protein 4.6 L, Albumin 2.4 L, Globulin 2.2, Albumin/Globulin Ratio 1.1 I & O for Labs for Last 24 Hours: Intake & Output 07/07/22 07/08/22 07/09/22 07/10/22 23:59 23:59 23:59 23:59 Intake Total 3538 / 3538 960 / 1483 1733 / 1733 580 / 580 Output Total 1999 / 1999 2800 / 2800 1550 / 1550 0 / 0 Balance 1538 / 1538 -1840 / -1317 183 / 183 580 / 580 Weight 102.058 kg 101.151 kg 101 kg 118.025 kg The patient's infection will respond to the chosen ABx?: Yes (BLOOD CULTURE = NO GROWTH) Is the patient receiving the right drug, dose, and route?: Yes Could a more targeted ABx be ordered?: No
--- NOTE | 2022-07-10 09:57 | EXP.DC.SUM ---
General Admission date:: 07/06/22 Discharge date: 07/10/22 HPI HPI HPI: 77-year-old male brought in by EMS after being found down outside in the cold rain.? History is difficult to obtain secondary to patient's clinical status unknown amount of time the patient was outside.? Patient was hypothermic in route by tactile touch but no objective temperature was taken.? Patient is unable to provide further history and family is not available at the time of arrival. In the emergency room patient was hypotensive, started on warmed lactated Ringer's. Remained hypotensive and required Levophed for pressor support. Bedside echo showed globally hypokinetic left ventricle ejection fraction approximately 40%. Patient was admitted to medicine and had improvement of his blood pressure. No history at this time. Hospital Course Hospital Course Hospital Course: Mr. Ansari is a 77 year old male with a past medical history of hypertension, hyperlipidemia, type 2 DM, CHANO on CPAP and obesity. He was admitted with hypothermia and shock on 07/06 after being found on the ground in the cold and rain. He recalls losing his balance and falling but doesn't remember how long he was on the ground; states he was too weak to get up. Empiric antibiotics and levophed were initiated. Hypotension, hypothermia, LEAH and hypernatremia resolved with treatments including warmed lactated ringers and empiric antibiotics. He was weaned off levophed. No source of infection was found. He received 4 days of broad spectrum antibiotics. He did not have any urinary symptoms, GI or respiratory symptoms. UA was without pyuria and CXR was without any acute cardiopulmonary process. His troponin and CK levels trended down. His lisinopril and hctz were discontinued. His lasix was resumed. He will be discharging to [facility]. Results of his echocardiogram and DIC panel are pending. #shock,resolved #thrombocytopenia #rhabdoymyolysis #NSTEMI, type 2 #hypernatremia, resolved #leah, resolved Exam Data for Last 24 hours Vital signs and Labs for Last 24 Hours: Temp Pulse Resp BP Pulse Ox 98.1 F 80 18 127/82 95 07/10/22 07:31 07/10/22 08:02 07/10/22 07:31 07/10/22 07:31 07/10/22 08:29 Laboratory Results - last 24 hr 07/08/22 10:32: Haptoglobin 55 07/09/22 11:49: POC Glucose 112 H 07/09/22 20:16: POC Glucose 132 H 07/10/22 05:32: WBC 6.1, RBC 3.83 L, Hgb 11.7 L, Hct 37.2 L, MCV 97.1 H, MCH 30.4, MCHC 31.3 L, RDW 14.7, Plt Count 107 L, MPV 7.7, Neut % (Auto) 47.8, Lymph % (Auto) 33.8, [place] % (Auto) 10.4 H, Eos % (Auto) 7.3, Baso % (Auto) 0.6, Neut # (Auto) 2.9, Lymph # (Auto) 2.1, [place] # (Auto) 0.6, Eos # (Auto) 0.5 H, Baso # (Auto) 0.0 07/10/22 05:32: Sodium 137, Potassium 4.5, Chloride 107, Carbon Dioxide 29, Anion Gap 5.5, BUN 16, Creatinine 0.40 L, Estimated Creat Clear 107, Estimated GFR 210, Est GFR ( Amer) 254 D, Glucose 101 H, Calcium 8.2 L, Total Bilirubin 1.2, AST 246 H, ALT 59, Alkaline Phosphatase 92, Total Creatine Kinase 3305 H* D, Total Protein 4.6 L, Albumin 2.4 L, Globulin 2.2, Albumin/Globulin Ratio 1.1 I & O for Last 24 hours: Intake & Output 07/07/22 07/08/22 07/09/22 07/10/22 23:59 23:59 23:59 23:59 Intake Total 3538 / 3538 960 / 1483 1733 / 1733 580 / 580 Output Total 1999 / 1999 2800 / 2800 1550 / 1550 0 / 0 Balance 1538 / 1538 -1840 / -1317 183 / 183 580 / 580 Weight 102.058 kg 101.151 kg 101 kg 118.025 kg Constitutional Constitutional: no acute distress *Routine HEENT Exam Head: Present normocephalic Eye: Present EOMI ENT: Present mucous membranes moist *Routine Neck Exam Neck: Present supple and full ROM *Routine Respiratory Exam Respiratory: Present crackles (bibasilar inspiratory) and normal respiratory effort; Absent CTA bilaterally *Routine Cardiovascular Exam Cardiovascular: Present Normal S1 and Normal S2; Absent murmur *Routine Abdominal Exam Abdominal: Present soft; Absent tenderness *Routine Extremities Exam Extremities
[2022-07-10 11:15] LABS: Coronavirus 19, PCR Not Detected (NotDetected); Influenza A, PCR Not Detected (NotDetected); Influenza B, PCR Not Detected (NotDetected)
--- NOTE | 2022-07-10 12:49 | PC.NURSE ---
Patient discharged to [place] with son. CPAP and dentures sent with son
--- NOTE | 2022-07-11 14:00 | CARE MANAGER ---
Contacted [facility]. They state that patient fell last night as he won't ring the [facility] for assistance, but he is doing better and is not hurt. They deny any questions or concerns at this time. JEREMI Chaparro
== END 2022-07-10 12:48 | DRG 871 ==
LOC: ER 11:37 → 2ND 11:58
PROVIDERS: Internal Medicine; Internal Medicine Adolescent Medicine; Nurse Practitioner Family; Admitting Provider Student in an Organized Health Care Education/Training Program; Emergency Provider Student in an Organized Health Care Education/Training Program; PCP Family Medicine; Visit Provider Student in an Organized Health Care Education/Training Program
DX: A41.9 Sepsis, unspecified organism (principal); I21.A1 Myocardial infarction type 2; R65.21 Severe sepsis with septic shock; M62.82 Rhabdomyolysis; N17.9 Acute kidney failure, unspecified; E87.20 Acidosis, unspecified; E87.0 Hyperosmolality and hypernatremia; T68.XXXA Hypothermia, initial encounter; W19.XXXA Unspecified fall, initial encounter; E11.9 Type 2 diabetes mellitus without complications; Z79.84 Long term (current) use of oral hypoglycemic drugs; Z79.899 Other long term (current) drug therapy
CPT/HCPCS: 36415; 51702; 70450; 71045; 80048; 80053; 80202; 81001; 82550; 82803; 82962; 83010; 83036; 83605; 83615; 83735; 84100; 84443; 84484; 85007; 85025; 85610; 85730; 87040; 93306; 97116; 97162; 97166; 97530; 97535; 99291; C9803; J0692; U0003; U0005

== ENCOUNTER 2023-01-21 13:21 | Emergency (ER) | payer MEDICARE, OTHER, SELFPAY ==
[2023-01-21 13:25] VITALS: BP 151/69; PULSE 83; RESP 20; TEMP 36.8; O2SAT 94; BMI 30.8
--- NOTE | 2023-01-21 13:35 | EXP.UTC ---
Discharge Plan Disposition Patient Disposition: Home, Self-Care Condition: Good Prescriptions Prescriptions: New cephalexin 500 mg capsule 500 mg PO QID Qty: 40 0RF mupirocin 2 % ointment 1 applic topical TID 7 Days Qty: 15 0RF No Action aspirin [Adult Aspirin Regimen] 81 mg tablet,delayed release (DR/EC) 81 mg PO DAILY lisinopril-hydrochlorothiazide 20-12.5 mg tablet 1 tab PO DAILY primidone 50 mg tablet 100 mg PO HS 90 Days Qty: 180 1RF simvastatin 20 mg tablet 20 mg PO HS metformin 500 mg tablet 500 mg PO BID cholecalciferol (vitamin D3) 1,000 unit capsule 1,000 unit PO BID sertraline 100 mg tablet 100 mg PO DAILY Referrals Follow up/Referrals: Provider,Referral, MD [Primary Care Provider] - See instructions Activity Restrictions/Add. Instructions Additional Instructions/Restrictions: Drink plenty of fluids. Take tylenol for pain or fever. Take the medications as directed. Follow up with your regular doctor. GO TO THE ER FOR ANY WORSENING SYMPTOMS Clinical Impressions Clinical Impression: Skin tear of right upper extremity, Arm pain, right, Need for Tdap vaccination Instructions Patient Instructions: DI for Avulsion Laceration (Not Requiring Sutures) Discharge ED Provider: Taj Ruiz [facility] General Stated complaint: ao 01/21 right elbow injury Time Seen by Provider: 01/21/23 13:35 History of Present Illness Provider Complaint: He states that he fell earlier today and came down on his right forearm. He denies injury other than he has a skin tear on his right forearm. His tetanus immunization is not up to date. Related Data Home Medications Medication Instructions Recorded Confirmed cholecalciferol (vitamin D3) 25 1,000 unit PO BID Supplement 09/15/18 01/09/23 mcg (1,000 unit) capsule metformin 500 mg tablet 500 mg PO BID Diabetes 09/15/18 01/09/23 simvastatin 20 mg tablet 20 mg PO HS Cholesterol 09/15/18 01/09/23 aspirin 81 mg tablet,delayed 81 mg PO DAILY heart health 04/03/21 01/09/23 release (Adult Aspirin Regimen) sertraline 100 mg tablet 100 mg PO DAILY mood 04/03/21 01/09/23 lisinopril 20 1 tab PO DAILY 05/04/23 10/04/23 mg-hydrochlorothiazide 12.5 mg tablet Previous Rx's Medication Instructions Recorded primidone 50 mg tablet 100 mg PO HS tremor 90 days #180 11/07/22 tabs cephalexin 500 mg capsule 500 mg PO QID #40 caps 01/21/23 mupirocin 2 % topical ointment 1 applic topical TID 7 days #15 01/21/23 grams Allergies Allergy/AdvReac Type Severity Reaction Status Date / Time Penicillins Allergy Verified 11/21/22 14:08 TAPE Allergy Unknown BLISTERS Uncoded 12/12/21 13:07 SKIN, CLEAR PLASTIC TAPE [facility] Disclaimer: The information contained in this section may have been updated after the patient was seen, as this information can be updated by other users. Medical History Diabetes Hypertension Kidney stones Nervousness Surgical History H/O hernia repair H/O lithotripsy Family History Other Family history of cancer Family history of kidney stone Social History (Updated 01/09/23 @ 15:54 by Mariola Salamanca) Smoking Status: Never smoker alcohol intake: never substance use type: denies use current occupational status: retired Travel in the last 8 weeks: None household members: significant other housing: house ROS Obtained: Yes All systems reviewed & no additional complaints except as documented Constitutional Constitutional: Denies chills and Denies fever(s) Eyes Eyes: Denies eye discharge ENT Ears, Nose, Mouth, and Throat: Denies dizziness, Denies otalgia and Denies sore throat Cardiovascular Cardiovascular: Denies chest pain Respiratory Respiratory: Denies shortness of breat
[2023-01-21 14:21] VITALS: BP 151/69; PULSE 83; RESP 20; TEMP 36.8; O2SAT 94
== END 2023-01-21 14:24 | disposition home or self-care (01) ==
PROVIDERS: Emergency Provider Nurse Practitioner Family
DX: S51.801A Unspecified open wound of right forearm, initial encounter (principal); I10 Essential (primary) hypertension; E11.9 Type 2 diabetes mellitus without complications; Z87.442 Personal history of urinary calculi; Z79.84 Long term (current) use of oral hypoglycemic drugs; Z23 Encounter for immunization; W19.XXXA Unspecified fall, initial encounter
CPT/HCPCS: 90715; 96372; 99204; 99212; G0463

== ENCOUNTER 2023-05-09 21:21 | Emergency (ER) | payer MEDICARE, OTHER, SELFPAY ==
[2023-05-09 21:21] VITALS: BP 134/60; PULSE 82; RESP 20; TEMP 37.2; O2SAT 96; BMI 30.7; BMI 31.3
--- NOTE | 2023-05-09 21:22 | XR_ITS ---
PROCEDURE INFORMATION: Exam: XR Chest Exam date and time: 05/09/2023 9:24 PM Age: 78 years old Clinical indication: Shortness of breath; Additional info: SOA TECHNIQUE: Imaging protocol: Radiologic exam of the chest. Views: 1 view. COMPARISON: CR XR CHEST PORTABLE 07/09/2022 3:37 PM FINDINGS: Lungs: Underlying interstitial lung markings. Pleural spaces: Subtle blunting of right costophrenic angle. Heart/Mediastinum: Stable cardiomegaly. Bones/joints: Unremarkable. IMPRESSION: Subtle blunting of right costophrenic angle. Can not exclude tiny pleural effusion versus pleural thickening.
[2023-05-09 21:41] LABS: VBG Base Excess -3.4 mmol/L (-2.4-2.3); VBG HCO3 20.9 mmol/L (23-30); VBG Oxygen Saturation 98.4 % (50-70); VBG PCO2 31.7 mmol/L (35-51); VBG PH 7.44 mmol/L (7.31-7.41); VBG PO2 126.1 mmol/L (28-40); VBG Total CO2 21.8 mmol/L (23-27)
[2023-05-09 21:41] LABS: Influenza A, PCR Not Detected (NotDetected); Influenza B, PCR Not Detected (NotDetected)
[2023-05-09 21:42] LABS: Basophils # 0.1 K/mm3 (0-0.2); Basophils % 0.9 % (0.1-2.0); Eosinophils # 0.1 K/mm3 (0.0-0.4); Eosinophils % 1.1 % (0.1-12.0); Hematocrit 36.1 % (42.0-52.0); Hemoglobin 12.2 g/dL (14.1-18.0); Lymphocytes % 27.1 % (10-50); Mean Corpuscular HGB Conc 33.9 g/dL (31.8-35.4); Mean Corpuscular Hemoglobin 30.1 pg (27.0-31.2); Mean Corpuscular Volume 88.8 fl (80-94); Mean Platelet Volume 9.5 fl (7.4-10.4); Monocytes # 0.8 K/mm3 (0.1-1.0); Monocytes % 11.5 % (1.7-9.3); Neutrophils # 4.3 K/mm3 (1.8-7.8); Neutrophils % 59.3 % (37.0-80.0); Platelet Count 140 K/mm3 (142-424); Red Blood Count 4.06 M/mm3 (4.60-6.20); White Blood Count 7.3 K/mm3 (4.8-10.8)
[2023-05-09 21:46] LABS: Chloride 106 mmol/L (98-107); Potassium 3.9 mmoL/L (3.5-5.1); Sodium 140 mmol/L (136-145)
--- NOTE | 2023-05-09 21:47 | ED_ITS ---
Discharge Plan Disposition Patient Disposition: Xfer Short-Term Hosp Referrals Follow up/Referrals: Chel Nice [Primary Care Provider] - See instructions Clinical Impressions Clinical Impression: Acute on chronic respiratory failure with hypoxemia, COVID-19 Stand Alone Forms Stand Alone Forms: Transfer Record - ED Discharge ED Provider: Blas Campoverde General Adult HPI <ROGELIO Morris - Last Filed: 05/09/23 23:17> General Chief complaint: Weakness Stated complaint: weakness fall x2 times same day Time Seen by Provider: 05/09/23 21:22 Mode of Arrival: EMS Source of Information: Patient and EMS Limitations: No Limitations Description of Symptoms (Recalled from ER Triage Doc. by RN): per ems patient has fallen twice today and complains of generalized weakness, denies any head, neck and back pain. was 87% on RA and on 2L 97%, pt is afebrile and non tachy. pt has been exposed to covid in the home History of Present Illness HPI narrative: Patient reports that he is slipped and fell 2 times today and was too weak to get back up. That is a abnormal event for him both in the falling and the inability to get back up. Patient does have a past medical history of untreated obstructive sleep apnea, type 2 diabetes mellitus, hypertension. His was diagnosed with COVID-19 today. Patient denies cough subjective fever chills hemoptysis hematochezia melena nausea vomiting diarrhea. Related Data Allergies Allergy/AdvReac Type Severity Reaction Status Date / Time Penicillins Allergy Verified 03/05/23 14:31 TAPE Allergy Unknown BLISTERS Uncoded 02/04/23 11:19 SKIN, CLEAR PLASTIC TAPE PFS <ROGELIO Morris - Last Filed: 05/09/23 23:17> [facility] Disclaimer: The information contained in this section may have been updated after the p atient was seen, as this information can be updated by other users. Medical History Diabetes Hypertension Kidney stones Nervousness Surgical History H/O hernia repair H/O lithotripsy Family History Other Family history of cancer Family history of kidney stone Social History Smoking Status: Never smoker alcohol intake: never substance use type: denies use current occupational status: retired Travel in the last 8 weeks: None household members: significant other housing: house <ROGELIO Morris - Last Filed: 05/09/23 23:17> ROS Obtained: Yes Systems reviewed as appropriate & no additional complaints except as documented Physical Exam <ROGELIO Morris - Last Filed: 05/09/23 23:17> General General appearance: alert and in no apparent distress Head Head exam: atraumatic and normal inspection Eye Eye exam: Present normal appearance, PERRL and EOMI ENT ENT exam: Present normal exam, normal oropharynx and mucous membranes moist Neck Neck exam: Present normal inspection, full ROM and trachea midline; Absent ly mphadenopathy Chest Chest inspection: Present normal inspection and symmetric chest wall rise Respiratory Respiratory exam: Present normal lung sounds bilaterally; Absent accessory muscle use Cardiovascular Cardiovascular exam: Present regular rate, normal rhythm, normal heart sounds, +S1 and +S2 Abdominal Exam Abdominal exam: Present soft and normal bowel sounds; Absent tenderness, guarding or rebound Extremities Exam Extremities exam: Present normal inspection and full ROM Neurological Exam Neurological exam: Present alert, oriented X3 and CN II-XII intact Psychiatric Psychiatric exam: Present normal affect and normal mood Skin Skin exam: Present warm, dry and normal color Lymphatic Lymphatic Findings: no adenopathy Medical Decision Making <ROGELIO Morris - Last Filed: 05/09/23 23:17> Medical Records Medical records reviewed: Yes I reviewed the patient's medical records. Rebel Inquiry Pt receiving controlled substance: No Rebel was queried for this patient: No Vital Signs: 05/09/23 21:21 05/09/23 23:00 05/10/23 01:51 Temperature 99.0 F 98.2 F Temperature Source Oral Oral Pulse Rate 75 70 Pulse Rate [Right Radial] 82 Respiratory Rate 20 22 22 Blood Pressure 134/71 130/69 Blood Pressure [Right Arm] 134/60 Blood Pressure Mean 80 Blood Pressure Mean [Right Arm] 84 Blood Pressure Source Automatic Cuff Blood Pressure Position Supine 02 Sat by Pulse Oximetry 96 95 Oxygen Delivery Method Room Air Nasal Cannula Oxygen Flow Rate (LPM) 2 2 Lab Data Lab results reviewed: Yes I reviewed the patient's lab results. Lab Results 05/09/23 21:20: WBC 7.3, RBC 4.06 L, Hgb 12.2 L, Hct 36.1 L, MCV 88.8, MCH 30.1, MCHC 33.9, RDW 16.0, Plt Count 140 L, MPV 9.5, Neut % (Auto) 59.3, Lymph % (Auto) 27.1, [place] % (Auto) 11.5 H, Eos % (Auto) 1.1, Baso % (Auto) 0.9, Neut # (Auto) 4.3, Lymph # (Auto) 2.0, [place] # (Auto) 0.8, Eos # (Auto) 0.1, Baso # (Auto) 0.1, Sodium 140, Potassium 3.9, Chloride 106, Carbon Dioxide 27, Anion Gap 10.9, BUN 14, Creatinine 0.70, Estimated Creat Clear 81, Estimated GFR 110, Est GFR ( Amer) 133, Glucose 108 H, Calcium 9.3, Total Bilirubin 0.7, AST 119 H, ALT 42, Alkaline Phosphatase 116, Troponin I < 0.01, Total Protein 6.5 D , Albumin 3.5, Globulin 3.0, Albumin/Globulin Ratio 1.2 05/09/23 21:21: SARS-CoV-2 (PCR) Detected A, Influenza A Untype (PCR) Not detected, Influenza Type B (PCR) Not detected 05/09/23 21:31: VBG pH 7.44 H, VBG pCO2 31.7 L, VBG pO2 126.1 H, VBG HCO3 20.9 L , VBG Total CO2 21.8 L, VBG O2 Saturation 98.4 H, VBG Base Excess -3.4 L 05/09/23 22:30: Lactate 2.5 H 05/09/23 21:20 05/09/23 21:20 Orders (Tests/Meds): ED MEDICATIONS Discontinued Medications Generic Name Dose Route Start Last Admin Trade Name Freq PRN Reason Stop Dose Admin Dexamethasone Sodium Phosphate 8 mg 05/10/23 00:05 05/10/23 00:16 Dexamethasone 4mg/Ml 1ml Vial IV 05/10/23 00:06 8 mg ONCE ONE Administration ORDERS Category Date Time Status Chest XR -- portable [XR chest portable] Stat Exams 05/09/23 21:22 Completed Complete Blood Count Auto Diff Stat Lab 05/09/23 21:20 Completed Comprehensive Metabolic Panel Stat Lab 05/09/23 21:20 Completed Lactic Acid Follow Up (RFLX 1) Stat Lab 05/10/23 02:42 Ordered Lactic Acid Stat Lab 05/09/23 22:30 Completed Rapid PCR Covid and Flu A/B Routine Lab 05/09/23 21:21 Completed Troponin I Stat Lab 05/09/23 21:20 Completed Blood Culture Stat Micro 05/09/23 22:40 Received VBG [Venous Blood Gas] Stat RT 05/09/23 21:31 Completed Medical Decision Narrative: In summary patient is a 78-year-old male who presents to the emergency department for evaluation of ground-level fall x 2 today. Patient suffered no apparent injury did not lose consciousness but was just too weak to stand on his own. Patient is hemodynamically stable upon arrival, low-grade temperature of 99 but hypoxic requiring 2 L of supplemental O2 to maintain oxygen saturation above 94%.. Sickle exam is unremarkable and nonfocal. Differential diagnosis includes asthenia versus acute hypoxemic respiratory failure, other viral or bacterial illness. Initial workup will be conducted with hematologic labs chest x-ray infectious swabs. Initial interventions include supplemental O2 ini tiation of IV fluids antipyretics. Workup thus far shows no acute processes althoughhe has bilateral pleural effusions on plain film chest x-ray by my unofficial interpretation. Does live alone will be his third episode of an accidental fall and inability to get up requiring EMS assistance. Normally has only nighttime oxygen requirement now requiring oxygen while awake to maintain a sat above 94%. Given all the above concern for worsening hypoxemic respiratory failure we will make an attempt to admit the patient to the hospital. At this time care will be turned over to Dr. Boyd <Blas Campoverde MD - Last Filed: 05/09/23 23:47> Vital Signs: 05/09/23 21:21 05/09/23 23:00 05/10/23 01:51 Temperature 99.0 F 98.2 F Temperature Source Oral Oral Pulse Rate 75 70 Pulse Rate [Right Radial] 82 Respiratory Rate 20 22 22 Blood Pressure 134/71 130/69 Blood Pressure [Right Arm] 134/60 Blood Pressure Mean 80 Blood Pressure Mean [Right Arm] 84 Blood Pressure Source Automatic Cuff Blood Pressure Position Supine 02 Sat by Pulse Oximetry 96 95 Oxygen Delivery Method Room Air Nasal Cannula Oxygen Flow Rate (LPM) 2 2 Lab Data Lab Results 05/09/23 21:20: WBC 7.3, RBC 4.06 L, Hgb 12.2 L, Hct 36.1 L, MCV 88.8, MCH 30.1, MCHC 33.9, RDW 16.0, Plt Count 140 L, MPV 9.5, Neut % (Auto) 59.3, Lymph % (Auto) 27.1, [place] % (Auto) 11.5 H, Eos % (Auto) 1.1, Baso % (Auto) 0.9, Neut # (Auto) 4.3, Lymph # (Auto) 2.0, [place] # (Auto) 0.8, Eos # (Auto) 0.1, Baso # (Auto) 0.1, Sodium 140, Potassium 3.9, Chloride 106, Carbon Dioxide 27, Anion Gap 10.9, BUN 14, Creatinine 0.70, Estimated Creat Clear 81, Estimated GFR 110, Est GFR ( Amer) 133, Glucose 108 H, Calcium 9.3, Total Bilirubin 0.7, AST 119 H, ALT 42, Alkaline Phosphatase 116, Troponin I < 0.01, Total Protein 6.5 D , Albumin 3.5, Globulin 3.0, Albumin/Globulin Ratio 1.2 05/09/23 21:21: SARS-CoV-2 (PCR) Detected A, Influenza A Untype (PCR) Not detected, Influenza Type B (PCR) Not detected 05/09/23 21:31: VBG pH 7.44 H, VBG pCO2 31.7 L, VBG pO2 126.1 H, VBG HCO3 20.9 L , VBG Total CO2 21.8 L, VBG O2 Saturation 98.4 H, VBG Base Excess -3.4 L 05/09/23 22:30: Lactate 2.5 H Orders (Tests/Meds): ED MEDICATIONS Discontinued Medications Generic Name Dose Route Start Last Admin Trade Name Freq PRN Reason Stop Dose Admin Dexamethasone Sodium Phosphate 8 mg 05/10/23 00:05 05/10/23 00:16 Dexamethasone 4mg/Ml 1ml Vial IV 05/10/23 00:06 8 mg ONCE ONE Administration ORDERS Category Date Time Status Chest XR -- portable [XR chest portable] Stat Exams 05/09/23 21:22 Completed Complete Blood Count Auto Diff Stat Lab 05/09/23 21:20 Completed Comprehensive Metabolic Panel Stat Lab 05/09/23 21:20 Completed Lactic Acid Follow Up (RFLX 1) Stat Lab 05/10/23 02:42 Ordered Lactic Acid Stat Lab 05/09/23 22:30 Completed Rapid PCR Covid and Flu A/B Routine Lab 05/09/23 21:21 Completed Troponin I Stat Lab 05/09/23 21:20 Completed Blood Culture Stat Micro 05/09/23 22:40 Received VBG [Venous Blood Gas] Stat RT 05/09/23 21:31 Completed Medical Decision Narrative: In summary patient is a 78-year-old male who presents to the emergency department for evaluation of ground-level fall x 2 today. Patient suffered no apparent injury did not lose consciousness but was just too weak to stand on his own. Patient is hemodynamically stable upon arrival, low-grade temperature of 99 but hypoxic requiring 2 L of supplemental O2 to maintain oxygen saturation above 94%.. Sickle exam is unremarkable and nonfocal. Differential diagnosis includes asthenia versus acute hypoxemic respiratory failure, other viral or bacterial illness. Initial workup will be conducted with hematologic labs chest x-ray infectious swabs. Initial interventions include supplemental O2 initiation of IV fluids antipyretics. Workup thus far shows no acute processes althoughhe has bilateral pleural effusions on plain film chest x-ray by my unofficial interpretation. Does live alone will be his third episode of an accidental fall and inability to get up requiring EMS assistance. Normally has only nighttime oxygen requirement now requiring oxygen while awake to maintain a sat above 94%. Given all the above concern for worsening hypoxemic respiratory failure we will make an attempt to admit the patient to the hospital. At this time care will be turned over to Dr. Boyd I was consulted by the MEENAKSHI, and we discussed the complexity of the problems being addressed. I approved the treatment and management plan for this patient?s care in the Emergency Department, thus performing a substantive portion of the medical decision making. Blas Campoverde MD <Cb Boyd MD - Last Filed: 05/10/23 02:44> Vital Signs: 05/09/23 21:21 05/09/23 23:00 05/10/23 01:51 Temperature 99.0 F 98.2 F Temperature Source Oral Oral Pulse Rate 75 70 Pulse Rate [Right Radial] 82 Respiratory Rate 20 22 22 Blood Pressure 134/71 130/69 Blood Pressure [Right Arm] 134/60 Blood Pressure Mean 80 Blood Pressure Mean [Right Arm] 84 Blood Pressure Source Automatic Cuff Blood Pressure Position Supine 02 Sat by Pulse Oximetry 96 95 Oxygen Delivery Method Room Air Nasal Cannula Oxygen Flow Rate (LPM) 2 2 Lab Data Lab Results 05/09/23 21:20: WBC 7.3, RBC 4.06 L, Hgb 12.2 L, Hct 36.1 L, MCV 88.8, MCH 30.1, MCHC 33.9, RDW 16.0, Plt Count 140 L, MPV 9.5, Neut % (Auto) 59.3, Lymph % (Auto) 27.1, [place] % (Auto) 11.5 H, Eos % (Auto) 1.1, Baso % (Auto) 0.9, Neut # (Auto) 4.3, Lymph # (Auto) 2.0, [place] # (Auto) 0.8, Eos # (Auto) 0.1, Baso # (Auto) 0.1, Sodium 140, Potassium 3.9, Chloride 106, Carbon Dioxide 27, Anion Gap 10.9, BUN 14, Creatinine 0.70, Estimated Creat Clear 81, Estimated GFR 110, Est GFR ( Amer) 133, Glucose 108 H, Calcium 9.3, Total Bilirubin 0.7, AST 119 H, ALT 42, Alkaline Phosphatase 116, Troponin I < 0.01, Total Protein 6.5 D , Albumin 3.5, Globulin 3.0, Albumin/Globulin Ratio 1.2 05/09/23 21:21: SARS-CoV-2 (PCR) Detected A, Influenza A Untype (PCR) Not detected, Influenza Type B (PCR) Not detected 05/09/23 21:31: VBG pH 7.44 H, VBG pCO2 31.7 L, VBG pO2 126.1 H, VBG HCO3 20.9 L , VBG Total CO2 21.8 L, VBG O2 Saturation 98.4 H, VBG Base Excess -3.4 L 05/09/23 22:30: Lactate 2.5 H Orders (Tests/Meds): ED MEDICATIONS Discontinued Medications Generic Name Dose Route Start Last Admin Trade Name Freq PRN Reason Stop Dose Admin Dexamethasone Sodium Phosphate 8 mg 05/10/23 00:05 05/10/23 00:16 Dexamethasone 4mg/Ml 1ml Vial IV 05/10/23 00:06 8 mg ONCE ONE Administration ORDERS Category Date Time Status Chest XR -- portable [XR chest portable] Stat Exams 05/09/23 21:22 Completed Complete Blood Count Auto Diff Stat Lab 05/09/23 21:20 Completed Comprehensive Metabolic Panel Stat Lab 05/09/23 21:20 Completed Lactic Acid Follow Up (RFLX 1) Stat Lab 05/10/23 02:42 Ordered Lactic Acid Stat Lab 05/09/23 22:30 Completed Rapid PCR Covid and Flu A/B Routine Lab 05/09/23 21:21 Completed Troponin I Stat Lab 05/09/23 21:20 Completed Blood Culture Stat Micro 05/09/23 22:40 Received VBG [Venous Blood Gas] Stat RT 05/09/23 21:31 Completed Medical Decision Narrative: In summary patient is a 78-year-old male who presents to the emergency department for evaluation of ground-level fall x 2 today. Patient suffered no apparent injury did not lose consciousness but was just too weak to stand on his own. Patient is hemodynamically stable upon arrival, low-grade temperature of 99 but hypoxic requiring 2 L of supplemental O2 to maintain oxygen saturation above 94%.. Sickle exam is unremarkable and nonfocal. Differential diagnosis includes asthenia versus acute hypoxemic respiratory failure, other viral or bacterial illness. Initial workup will be conducted with hematologic labs chest x-ray infectious swabs. Initial interventions include supplemental O2 initiation of IV fluids antipyretics. Workup thus far shows no acute processes althoughhe has bilateral pleural effusions on plain film chest x-ray by my unofficial interpretation. Does live alone will be his third episode of an accidental fall and inability to get up requiring EMS assistance. Normally has only nighttime oxygen requirement now requiring oxygen while awake to maintain a sat above 94%. Given all the above concern for worsening hypoxemic respiratory failure we will make an attempt to admit the patient to the hospital. At this time care will be turned over to Dr. Boyd I was consulted by the MEENAKSHI, and we discussed the complexity of the problems being addressed. I approved the treatment and management plan for this patient?s care in the Emergency Department, thus performing a substantive portion of the medical decision making. MD Oliver Donnelly MD: I assumed care of the patient at the time of handoff from the prior provider. On reassessment patient remains stable. COVID is positive. Given significant weakness, COVID, new hypoxic respiratory failure, patient requires admission. We discussed with family their preferences, [facility] I had an interactive discussion with the [facility] physician on-call who accepted the patient in transfer. I gave Decadron per accepting physician. Patient was transferred in stable condition. Critical Care <ROGELIO Morris - Last Filed: 05/09/23 23:17> Critical Care Time Critical Care Time: No
[2023-05-09 21:48] LABS: Alanine Aminotransferase 42 U/L (12-78); Aspartate Amino Transferase 119 U/L (17-59); Bilirubin,Total 0.7 mg/dl (0.2-1.3); Blood Urea Nitrogen 14 mg/dl (9-20); Creatinine Clearance Estimated 81 mL/min (50-200); Estimated Glomerular Filt Rate 110 ml/min (>60); GFR (African American) 133 ML/MIN (>60)
[2023-05-09 21:49] LABS: Albumin Level 3.5 g/dl (3.5-5.0); Albumin/Globulin Ratio 1.2 (1.1-1.8); Alkaline Phosphatase 116 U/L (38-126); Anion Gap 10.9 mEq/L (5-15); Calcium 9.3 mg/dl (8.4-10.2); Carbon Dioxide 27 mmol/L (22.0-30.0); Glucose 108 mg/dl (74-100); Total Protein,Serum 6.5 g/dl (6.3-8.2)
[2023-05-09 22:13] LABS: Troponin I < 0.01 ng/ml (0.00-0.034)
[2023-05-09 23:00] VITALS: BP 134/71; PULSE 75; RESP 22; O2SAT 95
[2023-05-09 23:02] LABS: Lactic Acid 2.5 mmol/L (0.7-2.1)
[2023-05-09 23:04] LABS: Coronavirus 19, PCR Detected (NotDetected)
--- NOTE | 2023-05-09 23:12 | PC.NURSE ---
Spoke to Bobby with [facility] for transfer. Awaiting callback from Dr. Mijares
[2023-05-09 23:30] VITALS: BP 121/57; PULSE 68; RESP 17; O2SAT 96
--- NOTE | 2023-05-09 23:43 | PC.NURSE ---
on phone with Dr Mijares @ [facility]
[2023-05-10] VITALS (7 sets, daily range): BP systolic 122–144; BP diastolic 68–74; PULSE 65–75; RESP 15–22; TEMP 36.8; O2SAT 96–98
[2023-05-10] MEDS: DEXAMETHASONE 4MG/ML 1ML VIAL 8 MG IV (00:16)
--- NOTE | 2023-05-10 00:23 | PC.NURSE ---
[facility] to [facility]. States he will call back shortly to give bed assignment
--- NOTE | 2023-05-10 00:31 | PC.NURSE ---
[facility] on [facility]. Number for report is [phone]
--- NOTE | 2023-05-10 00:35 | PC.NURSE ---
Called [facility] to get bed assignment and they stated the bed wasn't ready, so they would be calling me back.
--- NOTE | 2023-05-10 01:48 | PC.NURSE ---
Report given to JEREMI Khan at [facility] for [facility], [address]. [phone]
--- NOTE | 2023-05-10 01:50 | PC.NURSE ---
EMS notified for transfer
--- NOTE | 2023-05-10 01:55 | PC.NURSE ---
[place] notified RN that patient would not be going to [facility], but to 5th floor instead. They gave me [phone] to give report, but when I called and spoke to Alyssa on 5th floor she was unaware of this patient coming to them. She is going to call me back with information as soon as she is aware.
--- NOTE | 2023-05-10 02:37 | PC.NURSE ---
Report called to 5th floor, Sanjeev BLOOD. [phone]
--- NOTE | 2023-05-10 02:39 | PC.NURSE ---
EMS re-notified for transfer
[2023-05-10 02:42] LABS: Reflex Lactic Add Lactic Reflex
== END 2023-05-10 03:08 | disposition short-term general hospital (02) ==
PROVIDERS: Emergency Provider Emergency Medicine; PCP Nurse Practitioner Family
DX: U07.1 COVID-19 (principal); J96.21 Acute and chronic respiratory failure with hypoxia; R53.1 Weakness; E11.9 Type 2 diabetes mellitus without complications; I10 Essential (primary) hypertension; G47.33 Obstructive sleep apnea (adult) (pediatric); W01.0XXA Fall on same level from slipping, tripping and stumbling without subsequent striking against object, initial encounter
CPT/HCPCS: 36415; 71045; 80053; 82803; 83605; 84484; 85025; 87040; 87636; 96374; 99285

== ENCOUNTER 2023-08-12 16:33 | Emergency (ER) | payer MEDICARE, OTHER, SELFPAY ==
[2023-08-12 17:00] VITALS: BP 132/72; PULSE 75; RESP 18; TEMP 36.6; O2SAT 93; BMI 29.9
[2023-08-12 17:13] LABS: Apearance,Urine Turbid (Clear); Color,Urine Red (Yellow); Glucose,Urine (UA) Negative (Negative); Ketones,Urine Negative (Negative); PH,Urine 6.5 (5.0-8.5); Protein,Urine 1+ (Negative)
[2023-08-12 17:14] LABS: Bilirubin,Urine Negative (Negative); Blood, Urine 3+ (Negative); UTC Leukocyte Esterase,Urine Negative (Negative); UTC Nitrate,Urine Negative (Negative); Urobilinogen,Urine 1 EU/dl (0.2)
--- NOTE | 2023-08-12 17:24 | EXP.UTC ---
Discharge Plan Disposition Patient Disposition: Still a Patient Condition: Good Prescriptions Prescriptions: No Action multivitamin Tablet 1 tab PO DAILY metformin 500 mg Tablet 500 mg PO BID ascorbic acid (vitamin C) 250 mg Tablet 250 mg PO DAILY lisinopril-hydrochlorothiazide 10-12.5 mg Tablet 1 tab PO DAILY carbidopa-levodopa 25-100 mg Tablet 1 tab PO HS sertraline 50 mg Tablet 50 mg PO DAILY ferrous sulfate 324 mg (65 mg iron) Tablet,Delayed Release (Dr/Ec) 324 mg PO DAILY Cholecal DF 95 mcg (3,800 unit)-1 mg Tablet 1 tab PO DAILY Referrals Follow up/Referrals: Chel Nice [Primary Care Provider] - See instructions Dis[place] [facility] General Stated complaint: Blood in urine Mode of Arrival: Ambulatory Source of Information: Patient and Relative Limitations: No Limitations Time Seen by Provider: 08/12/23 17:24 Description of Symptoms (Recalled from Triage Doc. by RN): PATIENT C/O BLOOD IN URINE X 2 WEEKS. HE STATES HE WAS REFERRED [facility] BY [facility] Symptoms (Recalled from RN notes): No Resp Symptoms (Recalled from RN notes): No Skin Symptoms (Recalled from RN notes): No MS Symptoms (Recalled from RN notes): No Functional Status (Recalled from RN notes): WNL History of Present Illness Provider Complaint: Patient states that he was seen at the [facility] over a month ago and had some imaging down and they told him he had a kidney stone but hasnt been having any problems or pain but for the last week or so he has been urinating blood State that he is not having any pain, denies fever, denies difficulty urinating and he takes water pill so he always urinates States that [facility] referred him here Related Data Home Medications Medication Instructions Recorded Confirmed ascorbic acid (vitamin C) 250 mg 250 mg PO DAILY 08/12/23 08/12/23 tablet carbidopa 25 mg-levodopa 100 mg 1 tab PO HS 08/12/23 08/12/23 tablet ferrous sulfate 324 mg (65 mg 324 mg PO DAILY 08/12/23 08/12/23 iron) tablet,delayed release lisinopril 10 1 tab PO DAILY 08/12/23 08/12/23 mg-hydrochlorothiazide 12.5 mg tablet metformin 500 mg tablet 500 mg PO BID 05/06/24 05/06/24 multivitamin 1 tab PO DAILY 08/12/23 08/12/23 sertraline 50 mg tablet 50 mg PO DAILY 08/12/23 08/12/23 vitamin D3 95 mcg (3,800 1 tab PO DAILY 08/12/23 08/12/23 unit)-folic acid 1 mg tablet (Cholecal DF) Allergies Allergy/AdvReac Type Severity Reaction Status Date / Time adhesive tape Allergy Verified 08/12/23 17:13 Penicillins Allergy Verified 03/05/23 14:31 Worker's Comp Is this a Worker's Comp case?: No [facility] Dis[facility]: The information contained in this section may have been updated after the patient was seen, as this information can be updated by other users. Medical History (Updated 08/12/23 @ 17:14 by Miriam Correia RN) Urinary tract infection Depression Anxiety Cancer Hyperlipidemia Kidney stones Diabetes Nervousness Hypertension Surgical History H/O lithotripsy H/O hernia repair Family History Other Family history of cancer Family history of kidney stone Social History Smoking Status: Never smoker alcohol intake: never substance use type: denies use current occupational status: retired Travel in the last 8 weeks: None household members: significant other housing: house ROS Obtained: Yes All systems reviewed & no additional complaints except as documented and Yes Systems reviewed as appropriate & no additional complaints except as documented Constitutional Constitutional: Reports system reviewed and no additional complaints, except as documented, Reports as per HPI, Denies body ache, Denies chills and Denies fever(s) ENT Ears, Nose, Mouth, and Throat: Reports system reviewed and no additional complaints, except as documented and Reports as per HPI Cardiovascular Cardiovascular: Reports system reviewed and no additional complaints, except as documented and Reports as per HPI Respiratory Respiratory: Reports system reviewed and no additional complaints, except as documented and Reports as per HPI Gastrointestinal Gastrointestingal: Reports system reviewed and no additional complaints, except as documented and as per HPI Genitourinary Male Genitourinary: Reports system reviewed and no additional complaints, except as documented, Reports as per HPI and Reports hematuria Physical Exam General General appearance: alert and in no apparent distress Respiratory Respiratory exam: Present normal lung sounds bilaterally; Absent respiratory distress Cardiovascular Cardiovascular exam: Present regular rate, normal rhythm and normal heart sounds Neurological Exam Neurological exam: Present alert, oriented X3 and normal gait Medical Decision Making Rebel Inquiry Pt receiving controlled substance: No Rebel was queried for this patient: No Vital Signs: 08/12/23 17:00 Temperature 97.8 F Temperature Source Oral Pulse Rate [Left Brachial] 75 Respiratory Rate 18 Blood Pressure [Left Arm] 132/72 Blood Pressure Mean [Left Arm] 92 Blood Pressure Source [Left Arm] Automatic Cuff Blood Pressure Position [Left Arm] Sitting 02 Sat by Pulse Oximetry 93 L Oxygen Delivery Method Room Air Lab Data Lab results reviewed: Yes I reviewed the patient's lab results. Lab Results 08/12/23 17:12: Urine Color Red, Urine Appearance Turbid, Urine pH 6.5, Ur Specific [place] 1.020, Urine Protein 1+, Urine Glucose (UA) Negative, Urine Ketones Negative, Urine Blood 3+, Urine Nitrate Negative, Urine Bilirubin Negative, Urine Urobilinogen 1, Ur Leukocyte Esterase Negative Orders (Tests/Meds): ORDERS Category Date Time Status Urine Culture Stat Micro 08/12/23 17:12 Received Medical Decision Narrative: Patient states [facility] unsure exactly when and was told that he had a kidney stone but hasnt been having any pain or issues with it but for the last week or two he noticed he has been urinating blood Still denies any pain, fever, chills or pain with urination, but [facility] and [facility], 3+ blood noted in urine dip discussed with patient and will transfer to the ED for furhter work up and evaluation and he agreed Called the ED and patient was moved to room 6
[2023-08-12 17:39] VITALS: BP 140/75; PULSE 78; O2SAT 97
--- NOTE | 2023-08-12 17:39 | ED_ITS ---
Discharge Plan Disposition Patient Disposition: Home, Self-Care Condition: Good Prescriptions Prescriptions: New tamsulosin 0.4 mg capsule 0.4 mg PO HS Qty: 10 0RF No Action multivitamin Tablet 1 tab PO DAILY metformin 500 mg Tablet 500 mg PO BID ascorbic acid (vitamin C) 250 mg Tablet 250 mg PO DAILY lisinopril-hydrochlorothiazide 10-12.5 mg Tablet 1 tab PO DAILY carbidopa-levodopa 25-100 mg Tablet 1 tab PO HS sertraline 50 mg Tablet 50 mg PO DAILY ferrous sulfate 324 mg (65 mg iron) Tablet,Delayed Release (Dr/Ec) 324 mg PO DAILY Cholecal DF 95 mcg (3,800 unit)-1 mg Tablet 1 tab PO DAILY Referrals Follow up/Referrals: Chel Nice [Primary Care Provider] - See instructions Activity Restrictions/Add. Instructions Additional Instructions/Restrictions: The [place] urology team will call you to get you set up in the clinic. If you start developing any pain fever nausea vomiting go directly to the emergency department at the [place] at Dr. Cuevas's request. Return to the ER here for any worsening signs or symptoms as needed. Clinical Impressions Clinical Impression: Ureterolithiasis Hydronephrosis Qualifiers: Hydronephrosis type: with renal calculous obstruction Qualified Code(s): N13.2 - Hydronephrosis with renal and ureteral calculous obstruction Instructions Patient Instructions: DI for Urinary Tract Infection (UTI), DI for Urinary Tract Infection in Children Discharge ED Provider: Marlene Gamez General Adult HPI General Chief complaint: Urogenital-Male Stated complaint: Blood in urine Time Seen by Provider: 08/12/23 17:24 Mode of Arrival: Ambulatory Source of Information: Patient and Relative Limitations: No Limitations Description of Symptoms (Recalled from ER Triage Doc. by RN): PATIENT C/O BLOOD IN URINE X 2 WEEKS. HE STATES HE WAS REFERRED HERE BY [place] History of Present Illness HPI narrative: Patient presents for evaluation of painless hematuria. Patient reports that he has unprovoked hematuria for the last 2 weeks. He has no associated urinary symptoms including burning difficulty starting his stream. He does have a history of esophageal cancer and has frequent surveillance studies done he reports approximately 2 months ago the [place] reported that he had a nonobstructing kidney stone but he is not sure where. He has never had hematuria before. He denies chest pain shortness of breath fever chills hemoptysis hematochezia melena nausea vomit diarrhea dysuria. Patient is only on a baby aspirin a day. Related Data Home Medications Medication Instructions Recorded Confirmed ascorbic acid (vitamin C) 250 mg 250 mg PO DAILY 08/12/23 08/12/23 tablet carbidopa 25 mg-levodopa 100 mg 1 tab PO HS 08/12/23 08/12/23 tablet ferrous sulfate 324 mg (65 mg 324 mg PO DAILY 08/12/23 08/12/23 iron) tablet,delayed release lisinopril 10 1 tab PO DAILY 08/12/23 08/12/23 mg-hydrochlorothiazide 12.5 mg tablet metformin 500 mg tablet 500 mg PO BID 08/12/23 08/12/23 multivitamin 1 tab PO DAILY 08/12/23 08/12/23 sertraline 50 mg tablet 50 mg PO DAILY 08/12/23 08/12/23 vitamin D3 95 mcg (3,800 1 tab PO DAILY 08/12/23 08/12/23 unit)-folic acid 1 mg tablet (Cholecal DF) Previous Rx's Medication Instructions Recorded tamsulosin 0.4 mg capsule 0.4 mg PO HS #10 caps 08/12/23 Allergies Allergy/AdvReac Type Severity Reaction Status Date / Time adhesive tape Allergy Verified 08/12/23 17:13 Penicillins Allergy Verified 03/05/23 14:31 [facility] Disclaimer: The information contained in this section may have been updated after the patient was seen, as this information can be updated by other users. Medical History (Updated 08/12/23 @ 20:13 by ROGELIO Morris) Urinary tract infection Depression Anxiety Cancer Hyperlipidemia Kidney stones Diabetes Nervousness Hypertension Surgical History H/O lithotripsy H/O hernia repair Family History Other Family history of cancer Family history of kidney stone Social History Smoking Status: Never smoker alcohol intake: never substance use type: denies use current occupational status: retired Travel in the last 8 weeks: None household members: significant other housing: house ROS Obtained: Yes Systems reviewed as appropriate & no additional complaints except as documented Physical Exam General General appearance: alert and in no apparent distress Head Head exam: atraumatic and normal inspection Eye Eye exam: Present normal appearance and EOMI ENT ENT exam: Present normal exam and normal oropharynx Respiratory Respiratory exam: Present normal lung sounds bilaterally Cardiovascular Cardiovascular exam: Present regular rate and normal rhythm Abdominal Exam Abdominal exam: Present soft and normal bowel sounds; Absent tenderness, guarding, rebound or rigidity Extremities Exam Extremities exam: Present normal inspection and full ROM Back Exam Back exam: Present normal inspection and full ROM; Absent CVA tenderness (R) or CVA tenderness (L) Neurological Exam Neurological exam: Present alert and oriented X3 Lymphatic Lymphatic Findings: no adenopathy Medical Decision Making Medical Records Medical records reviewed: Yes I reviewed the patient's medical records. Rebel Inquiry Pt receiving controlled substance: No Vital Signs: 08/12/23 17:00 08/12/23 17:39 08/12/23 17:40 Temperature 97.8 F 97.9 F Temperature Source Oral Oral Pulse Rate 78 Pulse Rate [Left Brachial] 75 78 Respiratory Rate 18 18 Blood Pressure 140/75 Blood Pressure [Left Arm] 132/72 140/75 Blood Pressure Mean [Left Arm] 92 96 Blood Pressure Source Blood Pressure Source [Left Arm] Automatic Cuff Automatic Cuff Blood Pressure Position Blood Pressure Position [Left Arm] Sitting Sitting 02 Sat by Pulse Oximetry 93 L 97 93 L Oxygen Delivery Method Room Air Room Air Room Air 08/12/23 18:00 08/12/23 18:47 Temperature Temperature Source Pulse Rate 70 75 Pulse Rate [Left Brachial] Respiratory Rate 18 Blood Pressure 138/85 152/76 H Blood Pressure [Left Arm] Blood Pressure Mean [Left Arm] Blood Pressure Source Automatic Cuff Blood Pressure Source [Left Arm] Blood Pressure Position Sitting Blood Pressure Position [Left Arm] 02 Sat by Pulse Oximetry 96 94 L Oxygen Delivery Method Room Air Room Air Lab Data Lab results reviewed: Yes I reviewed the patient's lab results. Lab Results 08/12/23 17:12: Urine Color Red, Urine Appearance Turbid, Urine pH 6.5, Ur Specific [place] 1.020, Urine Protein 1+, Urine Glucose (UA) Negative, Urine Ketones Negative, Urine Blood 3+, Urine Nitrate Negative, Urine Bilirubin Negative, Urine Urobilinogen 1, Ur Leukocyte Esterase Negative 08/12/23 17:40: WBC 6.3, RBC 4.05 L, Hgb 12.2 L, Hct 38.6 L, MCV 95.3 H, MCH 30.2, MCHC 31.7 L, RDW 15.5, Plt Count 153, MPV 8.7, Neut % (Auto) 52.6, Lymph % (Auto) 32.7, Wharton % (Auto) 7.5, Eos % (Auto) 6.4, Baso % (Auto) 0.8, Neut # (Auto) 3.3, Lymph # (Auto) 2.1, [place]arton # (Auto) 0.5, Eos # (Auto) 0.4, Baso # (Auto) 0.1, PT 11.8, INR 1.10, Sodium 137, Potassium 3.9, Chloride 105, Carbon Dioxide 30, Anion Gap 5.9, BUN 8 L, Creatinine 0.50 L, Estimated Creat Clear 79, Estimated GFR 162, Est GFR ( Amer) 196, Glucose 91, Calcium 9.8, Total Bilirubin 1.0, AST 39, ALT 12, Alkaline Phosphatase 152 H, Total Protein 6.5, Albumin 3.5, Globulin 3.0, Albumin/Globulin Ratio 1.2 08/12/23 17:40 08/12/23 17:40 Orders (Tests/Meds): ED MEDICATIONS Generic Name Dose Route Start Last Admin Trade Name Freq PRN Reason Stop Dose Admin Sodium Chloride 10 ml 08/12/23 18:28 08/12/23 18:29 Sodium Chloride 0.9% 10ml Syr (Rad Only) IV 09/11/23 18:27 10 ml NEEDED PRN Administration Maintain IV Site Discontinued Medications Generic Name Dose Route Start Last Admin Trade Name Freq PRN Reason Stop Dose Admin Acetaminophen 1,000 mg 08/12/23 17:39 08/12/23 18:21 Acetaminophen 1,000mg/100ml Vial IV 08/12/23 17:40 Not Given ONCE ONE Lactated Ringer's 1,000 mls @ 999 mls/hr 08/12/23 17:39 08/12/23 18:44 Lactated Ringer's 1000 Ml Bag IV 08/12/23 18:39 999 mls/hr .Q1H1M ONE Administration Iopamidol 75 ml 08/12/23 18:28 08/12/23 18:29 Iopamidol-370 (76%);100ml Bottle IV 08/12/23 18:29 75 ml ONCE ONE Administration Ketorolac Tromethamine 15 mg 08/12/23 17:39 08/12/23 18:21 Ketorolac 30mg/Ml Vial IV 08/12/23 17:40 Not Given ONCE ONE ORDERS Category Date Time Status CT abdomen pelvis w con Stat Cat Scan 08/12/23 17:43 Completed CBC w/Auto Diff [Complete Blood Count Auto Diff] Stat Lab 08/12/23 17:40 Completed CMP [Comprehensive Metabolic Panel] Stat Lab 08/12/23 17:40 Completed INR [Prothrombin Time INR] Stat Lab 08/12/23 17:40 Completed Urine Culture Stat Micro 08/12/23 17:12 Received Medical Decision Narrative: In summary patient is a 78-year-old male who presents to the emergency department for evaluation of painless hematuria. Patient is hemodynamically stable upon arrival, febrile. Physical exam is unremarkable and nonfocal including negative CVA tenderness and negative tenderness to palpation of the suprapubic area. Differential diagnosis includes urinary tract infection, kidney stone, malignancy etc. Initial workup will be conducted with hematologic labs urinalysis CT scan abdomen pelvis with contrast. Initial interventions include crystalloid bolus Toradol Tylenol. Initial workup reviewed by me shows normal H&H normal white count with no shift and remainder of his laboratory investigations are nonactionable. My informal interpretation of the CT scan of his abdomen pelvis shows a left-sided hydronephrosis with a mid ureteral stone with radiology read pending. Upon repeat evaluation patient remains asymptomatic. Given this I had an interactive discussion with Dr. Cuevas at the [facility] in [place] regarding patient management. Dr. Cuevas advised that they will contact the patient and get him in the urology clinic. Patient to come to the [place] ER should he develop any fever nausea vomiting or any other urinary tract symptoms. Critical Care Critical Care Time Critical Care Time: No
[2023-08-12 17:40] VITALS: BP 140/75; PULSE 78; RESP 18; TEMP 36.6; O2SAT 93; BMI 29.9
--- NOTE | 2023-08-12 17:43 | CT_ITS ---
PROCEDURE INFORMATION: Exam: CT Abdomen And Pelvis With Contrast Exam date and time: 08/12/2023 6:24 PM Age: 78 years old Clinical indication: Other: Painless hematuria TECHNIQUE: Imaging protocol: Computed tomography of the abdomen and pelvis with contrast. Radiation optimization: All CT scans at this facility use at least one of these dose optimization techniques: automated exposure control; mA and/or kV adjustment per patient size (includes targeted exams where dose is matched to clinical indication); or iterative reconstruction. Contrast material: ISOVUE; Contrast volume: 75 ml; Contrast route: IV; COMPARISON: CR XR CHEST PORTABLE 05/09/2023 9:24 PM FINDINGS: Lungs: Bibasilar fibrotic changes with architectural distortion, and centrilobular ground glass opacities suggest NSIP. Right middle lobe nodule measures 16 mm in diameter, axial image 10. Diaphragm: A small sliding hiatal hernia is present. Liver: Nodular contours of the liver compatible with cirrhosis. Gallbladder and bile ducts: Normal. No calcified stones. No ductal dilation. Pancreas: Calcifications and atrophy of the pancreas are consistent with chronic pancreatitis. No evidence of acute pancreatitis. Spleen: Normal. No splenomegaly. Adrenal glands: Normal. No mass. Kidneys and ureters: Right renal Bosniak 1 cystic lesion that is homogeneous and fluid density (-9-20 HU), no septations or calcifications, having johns smooth and thin. Measurement is 18 mm. No follow-up recommended. Nonobstructive bilateral nephrolithiasis define by multiple bilateral renal calcific densities the largest measuring up to 7 mm at the left kidney midpole. Left proximal ureteral calcific density compatible with ureterolith is related to mild left hydronephrosis and hydroureter and measures up to 8 mm. Stomach and bowel: Unremarkable. No obstruction. No mucosal thickening. Appendix: No evidence of appendicitis. Intraperitoneal space: Unremarkable. No free air. No significant fluid collection. Vasculature: Moderate calcific atherosclerotic disease of the abdominal aorta without aneurysmal dilatation is present. Splenorenal varices present. Lymph nodes: Unremarkable. No enlarged lymph nodes. Urinary bladder: Unremarkable as visualized. Reproductive: Unremarkable as visualized. Bones/joints: Unremarkable. No acute fracture. Soft tissues: Normal. IMPRESSION: 1. Bibasilar fibrotic changes with architectural distortion, and centrilobular ground glass opacities suggest NSIP. 2. Solitary pulmonary nodule measuring 16 mm. For both low risk and high risk patients, consider CT Chest at 3 months, PET/CT, or biopsy. (Reference: Nicko) 3. Mild left hydronephrosis and hydroureter related to left proximal ureterolith as described above. 4. Nodular contours of the liver compatible with cirrhosis. COMMENTS: Consistent with the [employer]'s Incidental Findings Committee white paper (J Am Adleso Radiol 2018): Any incidental renal lesion less than 1 cm or classified as too small to characterize, or any incidental cystic renal lesion characterized as simple-appearing, is likely benign. No follow-up imaging is recommended for these lesions per consensus recommendations based on imaging criteria. REFERENCES: Nicko Ibrahim, et al. Guidelines for Management of Incidental Pulmonary Nodules Detected on CT Images: From the Fleischner Society 2017. Radiology. 2017;284(1):228-243.
[2023-08-12 17:51] LABS: Basophils # 0.1 K/mm3 (0-0.2); Basophils % 0.8 % (0.1-2.0); Eosinophils # 0.4 K/mm3 (0.0-0.4); Eosinophils % 6.4 % (0.1-12.0); Hematocrit 38.6 % (42.0-52.0); Hemoglobin 12.2 g/dL (14.1-18.0); Lymphocytes # 2.1 K/mm3 (0.7-4.5); Lymphocytes % 32.7 % (10-50); Mean Corpuscular HGB Conc 31.7 g/dL (31.8-35.4); Mean Corpuscular Hemoglobin 30.2 pg (27.0-31.2); Mean Corpuscular Volume 95.3 fl (80-94); Mean Platelet Volume 8.7 fl (7.4-10.4); Monocytes # 0.5 K/mm3 (0.1-1.0); Monocytes % 7.5 % (1.7-9.3); Neutrophils # 3.3 K/mm3 (1.8-7.8); Neutrophils % 52.6 % (37.0-80.0); Platelet Count 153 K/mm3 (142-424); Red Blood Count 4.05 M/mm3 (4.60-6.20); Red Cell Distribution Width 15.5 % (11.5-17.5); White Blood Count 6.3 K/mm3 (4.8-10.8)
[2023-08-12 18:00] VITALS: BP 138/85; PULSE 70; O2SAT 96
[2023-08-12 18:00] LABS: Chloride 105 mmol/L (98-107); Potassium 3.9 mmoL/L (3.5-5.1); Sodium 137 mmol/L (136-145)
[2023-08-12 18:03] LABS: Alanine Aminotransferase 12 U/L (12-78); Albumin Level 3.5 g/dl (3.5-5.0); Albumin/Globulin Ratio 1.2 (1.1-1.8); Alkaline Phosphatase 152 U/L (38-126); Anion Gap 5.9 mEq/L (5-15); Aspartate Amino Transferase 39 U/L (17-59); Blood Urea Nitrogen 8 mg/dl (9-20); Carbon Dioxide 30 mmol/L (22.0-30.0); Creatinine Clearance Estimated 79 mL/min (50-200); Estimated Glomerular Filt Rate 162 ml/min (>60); GFR (African American) 196 ML/MIN (>60); Total Protein,Serum 6.5 g/dl (6.3-8.2)
[2023-08-12 18:04] LABS: Calcium 9.8 mg/dl (8.4-10.2); Glucose 91 mg/dl (74-100)
[2023-08-12 18:11] LABS: Prothrombin Time 11.8 seconds (10.1-12.5)
--- NOTE | 2023-08-12 18:13 | PC.NURSE ---
Pt gone to RAD via stretcher
[2023-08-12] MEDS: SODIUM CHLORIDE 0.9% 10ML SYR (RAD ONLY) 10 ML IV (18:29)
[2023-08-12] MEDS: IOPAMIDOL-370 (76%);100ML BOTTLE 75 ML IV (18:29)
[2023-08-12] MEDS: LACTATED RINGERS 1000ML 1,000 ML 999 ML IV (18:44)
[2023-08-12 18:47] VITALS: BP 152/76; PULSE 75; RESP 18; O2SAT 94
--- NOTE | 2023-08-12 19:10 | PC.NURSE ---
report given to oncoming shift.
--- NOTE | 2023-08-12 19:58 | PC.NURSE ---
[facility]ed [facility] transfer [facility].
[2023-08-12 20:26] VITALS: BP 166/90; PULSE 78; RESP 19; TEMP 36.7; O2SAT 98
== END 2023-08-12 20:27 | disposition home or self-care (01) ==
LOC: UTC 17:32 → ER 17:34
PROVIDERS: Nurse Practitioner; Physician Assistant; Emergency Provider Student in an Organized Health Care Education/Training Program; PCP Nurse Practitioner Family
DX: N13.0 Hydronephrosis with ureteropelvic junction obstruction (principal); N13.4 Hydroureter; R31.0 Gross hematuria; E11.9 Type 2 diabetes mellitus without complications; I10 Essential (primary) hypertension; E78.5 Hyperlipidemia, unspecified; Z79.84 Long term (current) use of oral hypoglycemic drugs
CPT/HCPCS: 74177; 80053; 81003; 85025; 85610; 87086; 96361; 96374; 96375; 99284; Q9967

== ENCOUNTER 2024-09-20 16:54 | Outpatient (CLI) | payer MEDICARE, OTHER, SELFPAY ==
--- OUTSIDE RECORDS SUMMARY | 2024-09-20 17:01 | XMS_ITS | Clinical Summary ---
Author Organization Healthcare Address [address] [place] [address] Care Team Providers Care Field Service Rep Name Role Phone Star Sears MD Primary Care Provider [phone] Social History Tobacco Use Types Packs/Day Years Used Date Smoking Tobacco: Never Sex and Gender Information Value Date Recorded Sex Assigned at Not on file Legal Sex Male 5:59 PM EDT Gender Identity Not on file Sexual Orientation Not on file Last Filed Vital Signs Vital Sign Reading Time Taken Comments Blood Pressure - - Pulse - - Temperature - - Respiratory Rate - - Oxygen Saturation - - Inhaled Oxygen Concentration - - Weight 105 kg (231 lb) 07/28/2015 2:30 PM EDT Height 172.7 cm (5' 8 ) 07/28/2015 2:30 PM EDT Body Mass Index 35.12 07/28/2015 2:30 PM EDT Plan of Treatment Health Maintenance Due Date Last Done Comments [facility]-Depression Screening 1945 [facility]Infant/Child/Adol SDOH Screenings 1945 [facility]- SDOH Screenings 1965 [facility]-Adult SDOH Screenings 1963 [facility]-Zoster Vaccines (2 of 3) 06/03/2013 04/08/2013 [facility]-RSV Vaccine: 60+ Years or (1 - 1-dose 75+ series) 2022 [id number] Vaccine ( season) 2023 12/25/2021, 01/04/2021, 06/17/2020, Additional history exists [facility]-DTaP,Tdap,and Td Vaccines (4 - Td or Tdap) 01/21/2033 01/21/2023, 08/06/2014, 07/07/2014, Additional history exists [facility]-Pneumococcal Vaccine: 50+ Years Completed 11/08/2021, 05/28/2017, 12/07/2014, Additional history exists [facility]-Influenza Vaccine Completed 12/19/2023 , 03/04/2023, 03/26/2022, Additional history exists HPV Vaccines Aged Out No longer eligi ble based on patient's age to complete this topic [facility]-HIB Vaccines Aged Out No longer e ligible based on patient's age to complete this topic [facility]-Hepatitis A Vaccines Aged Out No longer eligible based on patient's age to complete this topic [facility]-IPV Vaccines Aged Out No longer e ligible based on patient's age to complete this topic [facility]-Rotavirus Vaccines Aged Out No lo nger eligible based on patient's age to complete this topic Care Teams Field Service Rep Relationship Specialty Start Date End Date Star Sears MD [address] [place] [address] PCP - General 08/19/20
--- OUTSIDE RECORDS SUMMARY | 2024-09-20 17:01 | XMS_ITS ---
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, SNOMED CT) Moderate 07/18/[address] Penicillins Unknown 07/10/2022 activ e Care Team Name Role Address Phone Organization Dates Star Lincoln PCP [address] [place] [address], [place], [address], Sarah States (Office): [facility] 07/10/2022 - 07/30/2022 Yenny Kirby) [place], [address], [place] States (Office): : [facility] 07/10/2022 - 07/30/2022 Goals Section Goals Description Status Target Date (Specify: I will, The reside nt will, [PREFERRED NAME] will) be able to verbalize/communicate required assistance post-discharge and the services required to meet needs before discharge. Active 07/30/2022 (Specify: I, The resident, [ PREFERRED NAME]) will maintain current level of decison making ability by (Specify) by review date. Active 07/30/2022 (Specify: I, The resident, [ PREFERRED NAME]) will exhibit indicators of depression, anxiety or sad mood less than daily by review date. Active 07/30/2022 (Specify: I, The resident, [ PREFERRED NAME]) will not sustain serious injury through the review date. Active 07/30/2022 Kwame will have no complica tions related to diabetes through the review date. Active 07/30/2022 Kwame will improve current level of function in Bed Mobility, Transfers, through the review date. Active 07/30/2022 Kwame will maintain current level of cognitive function through the review date. Active 07/30/2022 Goal is slow, gradual weight loss, 1-3#/month, closer to IBWR. Random blood sugar of 185 or less, fasting blood sugar of 165 or less. Free from s/s of dehydration. Intact, non-reddened skin. Active 07/30/2022 Resident and Family's wishes will be honored. Ac tive 07/30/2022 Immunizations Immunization Status Vaccine Details Vaccine Code CodeSystem Date Notes TB 2 Step Mantoux Skin Test completed tuberculin skin test; unspecified formulation lotNumber: [id number] expiry: 09/13/2024 Mfg: Sandfi-pasteur Given 0.1 ml Left Forearm intradermally Step 1 of Multi-step with next step required 98 CVX created date: 07/17/2022 consent date: 07/17/2022 administer ed date: 07/17/2022 read by Christopher Jimenez LPN PNEUMOVAX 23 completed pneumococcal polysaccharide vaccine, 23 valent 33 CVX created date: 07/10/2022 administer ed date: 11/08/2021 [email or web address] bivalent booster completed SARS-COV-2 (COVID-19) vaccine, mRNA, spike protein, LNP, bivalent, preservative free, 30 mcg/0.3 mL dose, didier-sucrose formulation Given 0.5 ml intramuscularly 300 CVX created date: 07/18/2022 administer ed date: 12/25/2021 given at the [place] Influenza High Dose completed Influenza, high-dose, split virus, quadrivalent, injectable, preservative free 197 CVX created date: 07/10/2022 administer ed date: 03/26/2022 Mental Status Section Date Assessment Total Score Description 07/30/2022 BIMS 12 moderate cognit libby impairment CAM 0 No delirium ind icated PHQ-9 00 07/16/2022 BIMS 12 moderate cognit libby impairment CAM 0 No delirium ind icated PHQ-9 00 Problems Problem # Description Date of onset Resolved Date Code CodeSystem Concern Status 1 ACIDOSIS, UNSPECIFIED 07/10/[address] active 2 ACUTE KIDNEY FAILURE, UNSPECIFIED 07/10/[address] active 3 DEPRESSION, UNSPECIFIED 07/10/[address] active 4 HYPERLIPIDEMIA, UNSPECIFIED 07/10/[address] active 5 HYPOTENSION, UNSPECIFIED 07/10/[address] active 6 HYPOTHERMIA, SUBSEQUENT ENCOUNTER 07/10/[address] active 7 MUSCLE WEAKNESS (GENERALIZED) 07/10/[address] active 8 NON-ST ELEVATION (NSTEMI) MYOCARDIAL INFARCTION 07/10/[address] active 9 OTHER SYMBOLIC DYSFUNCTIONS 07/10/[address] active 10 RHABDOMYOLYSIS 07/10/[address] ac tive 11 TYPE 2 DIABETES MELLITUS WITHOUT COMPLICATIONS 07/10/[address] active 12 UNSPECIFIED FALL, SUBSEQUENT ENCOUNTER 07/10/[address] active Reason for Referral No Reasons for Referral Entered Social History Social History Observation Description Start Date End Date Code Code System Current Smoking Status Tobacco smoking consumption unknown 602180507 SNOMED CT Sex Assigned At Male 1945 [address]-6 [facility] Gender Identity Vital Signs Code Code System Vitals Name Values and Units Timing Information 9279-1 LOINC Respiratory Rate Value=20.0 Units=/m in 07/27/2022 8462-4 LOINC Blood Pressure-Diastolic Value=87 Un its=mmHg 07/27/2022 8480-6 LOINC Blood Pressure-Systolic Vafzg=456 Un its=mmHg 07/27/2022 8310-5 LOINC Body Temperature Value=97.9 Units= F 07/27/2022 8867-4 LOINC Heart rate Value=92.0 Units=/min 47005-4 LOINC O2 % BldC Oximetry Value=93.0 Units= % 07/27/2022 79285-3 LOINC Weight Qxyey=075.6 Units=Lbs 62019-8 LOINC Pain Level Value=0.0 07/16/2022 2339-0 [facility] Blood Sugar Value=96.0 Units=mg/dL 07/15/2022 8302-2 LOINC Height Value=68.0 Units=Inches 07/10/2022
--- NOTE | 2024-09-20 17:03 | XR_ITS ---
PROCEDURE INFORMATION: Exam: XR Chest Exam date and time: 09/20/2024 4:54 PM Age: 79 years old Clinical indication: Cough TECHNIQUE: Imaging protocol: Radiologic exam of the chest. Views: 2 views. Total images: 2 COMPARISON: CR XR CHEST PORTABLE 05/09/2023 9:24 PM FINDINGS: Lungs: Considerable bibasilar and peripheral predominant interstitial coarsening as shown previously. No overt pulmonary vascular congestion. No superimposed airspace consolidation. Pleural spaces: Unremarkable. No pleural effusion. No pneumothorax. Heart/Mediastinum: Unremarkable. No cardiomegaly. No mediastinal widening or hilar enlargement. Vasculature: Atherosclerotic aortic arch. Bones/joints: Partially visualized mild degenerative changes of the thoracic spine. Moderate degenerative changes bilateral AC joints. IMPRESSION: 1. Considerable chronic pulmonary interstitial fibrosis. 2. No convincing evidence for acute superimposed process. 3. No significant change from May 09, 2023.
== END 2024-09-20 23:59 | disposition home or self-care (01) ==
LOC: RAD 16:59
PROVIDERS: Visit Provider Student in an Organized Health Care Education/Training Program
DX: J84.10 Pulmonary fibrosis, unspecified (principal); M19.012 Primary osteoarthritis, left shoulder; M19.011 Primary osteoarthritis, right shoulder; M47.814 Spondylosis without myelopathy or radiculopathy, thoracic region
CPT/HCPCS: 71046